=== PATIENT | female | born 1950 | race African-American/Black ===

== ENCOUNTER 2017-03-14 08:22 | Inpatient (IN) | payer OTHER, MEDICAID ==
[~2017-03-14] VITALS: Ht 167.6 cm; Wt 64.1 kg
[2017-03-14] VITALS (34 sets, daily range): BP systolic 70–126; BP diastolic 51–98
[~2017-03-14 08:22] MED LIST: ADVAIR 500-501 EACH INH; ALBUTEROL2.5 MG/3 M INH; ALLOPURINOL100 M1 ORAL; ALPHAGAN P5 M2 OP; AMLODIPINE BESYL5 MG ORAL; ASPIR 8181 MG ORAL; BENAZEPRIL HCL10 MG ORAL; COLCHICINE0.6 M1 PO; COMBIGAN EYE DRO5 ML OP; CRESTOR10 M1 ORAL; FENTANYL1 EAC3 TDERMAL; FOSAMAX70 MG ORAL; GABAPENTIN100 MG ORAL; HYDROCODON-ACE1 EA13 ORAL; KEPPRA500 MG ORAL; MIRTAZAPINE30 MG ORAL; NEXIUM40 MG ORAL; NIACIN50 MG PO; OYSTER SHELL C500 MG PO; PREDNISONE10 MG ORAL; PROTONIX40 MG ORAL; REGLAN5 MG ORAL; TENORMIN25 MG ORAL; VITAMIN B12-FO1 EAC1 IM; VITAMIN D3 1,01 EACH PO; ZANTAC150 MG ORAL
[2017-03-14 09:07] LABS: BASOPHILS % (AUTO) 0.7 % (0.0-2.0); EOSINOPHILS % (AUTO) 0.2 % (0.0-3.0); LYMPHOCYTES % (AUTO) 20.3 % (20.0-45.0); MEAN CORPUSCULAR HEMOGLOBIN 29.1 PG (27.0-31.0); MEAN CORPUSCULAR HGB CONC 30.7 G/DL (32.0-36.0); MEAN CORPUSCULAR VOLUME 95 FL (80-99); MONOCYTES % (AUTO) 2.4 % (1.0-10.0); NEUTROPHILS % (AUTO) 76.4 % (45.0-75.0); PLATELET COUNT 163 K/UL (150-450); RED BLOOD COUNT 5.15 M/UL (4.20-5.40); RED CELL DISTRIBUTION WIDTH 13.1 % (11.6-14.8); WHITE BLOOD COUNT 13.5 K/UL (4.8-10.8)
[2017-03-14 09:13] LABS: ALBUMIN/GLOBULIN RATIO 1.2 (1.0-2.7); CALCIUM 10.5 mg/dL (8.6-10.2); CREATININE 1.2 mg/dL (0.5-0.9); GLOMERULAR FILTRATION RATE 53.9 mL/min (>60); POTASSIUM 3.9 mEQ/L (3.4-4.9); TOTAL PROTEIN 6.5 g/dL (6.6-8.7); TROPONIN I < 0.30 ng/mL (<=0.30)
[2017-03-14 09:31] LABS: CKMB 1.7 ng/mL (< 3.8)
[2017-03-14 09:31] LABS: APPEARANCE,URINE CLEAR; KETONES,URINE NEGATIVE (NEGATIVE); LEUKOCYTE ESTERASE ,URINE NEGATIVE (NEGATIVE); NITRITE,URINE NEGATIVE (NEGATIVE); PH,URINE 6 (4.5-8.0); PROTEIN,URINE NEGATIVE (NEGATIVE); UROBILINOGEN,URINE 1 MG/DL (0.0-1.0)
[2017-03-14 09:42] LABS: ICTOTEST NEGATIVE
[2017-03-14] MEDS ORDERED: Cefepime HCl 2 GM in NS 110 ML IV ONE (09:45)
[2017-03-14 09:46] LABS: REFLEX LACTIC ACID YES OR NO YES
[2017-03-14] MEDS ORDERED: Metoprolol 5mg/5ml Inj IVP ONE (10:00)
--- NOTE | 2017-03-14 10:08 | Diagnostic Imaging Report ---
Indications: Shortness of breath Technique: Portable AP chest Findings: Comparison: 07/03/2016 Endotracheal and nasogastric tubes have been removed. Curvilinear gas lucency overlying the lower left side of cardiac silhouette resolved. Cardiac silhouette remains enlarged. Pulmonary vasculature obscured. Interstitial markings remain increased throughout both lungs. Linear densities persist in right lung base. Superimposed patchy airspace opacities are now suggested in the left upper lobe. Left retrocardiac region less consolidated. Left costophrenic angle remains blunted; right sharp. IMPRESSION: Development of patchy airspace opacities left upper lobe--pulmonary edema versus early pneumonia Background bilateral interstitial prominence, nonspecific, may represent chronic disease or recurrent pulmonary edema in the setting of congestive heart failure Persistent suggestion of small left pleural effusion Persistent right basal subsegmental atelectasis Improvement in left retrocardiac opacification, resolution of gas lucency over mediastinal silhouette
[2017-03-14] MEDS ORDERED: Cefepime 2gm ONE (10:16)
--- NOTE | 2017-03-14 11:28 | Emergency Room Report ---
History of Present Illness General Chief Complaint: Dyspnea/Respdistress Source: Medical Record Present Illness HPI 67-year-old female presents to ED for evaluation. Per family patient has been more altered and usual since this morning. Patient has history of frequent pneumonia. Has been hospitalized recently for treatment of pneumonia. Upon arrival patient appears more lethargic than usual but is awake answering questions. Patient has a fever. Denies chest pain or shortness of breath. No other aggravating relieving factors. No other associated symptoms Allergies: Coded Allergies: NO KNOWN ALLERGIES (Unverified Allergy, Unknown, 06/30/16) Patient History Past Medical History: HTN, CHF, seizures, other - SLE Past Surgical History: none Pertinent Family History: none Social History: Denies: smoking, alcohol use, drug use Now: No Immunizations: UTD Reviewed Nursing Documentation: PMH: Agreed, PSxH: Agreed Nursing Documentation-PMH Hx Cardiac Problems: Yes - CHF; Lupus Hx Hypertension: Yes Hx COPD: Yes - Respiratory failure; Sepsis Hx Cancer: No Hx Gastrointestinal Problems: Yes Hx Neurological Problems: Yes Hx Seizures: Yes - MYOCLONIC JERK Hx Peripheral Neuropathy: Yes Hx Numbness: Yes Hx Weakness: Yes - lower extremities Review of Systems All Other Systems: negative except mentioned in HPI Physical Exam Vital Signs Date Time Temp Pulse Resp B/P (MAP) Pulse Ox O2 Delivery O2 Flow Rate FiO2 03/14/17 08:20 97.5 72 20 99/61 100 Non-Rebreather 03/14/17 08:30 4.0 Sp02 EP Interpretation: reviewed, normal General Appearance: no apparent distress, alert, GCS 15, non-toxic, lethargic Head: normocephalic, atraumatic Eyes: bilateral eye normal inspection, bilateral eye PERRL ENT: hearing grossly normal, normal pharynx, no angioedema, normal voice Neck: full range of motion, supple/symm/no masses Respiratory: chest non-tender, normal breath sounds, crackles, speaking full sentences Cardiovascular #1: no edema, tachycardia Cardiovascular #2: 2+ carotid (R), 2+ carotid (L), 2+ radial (R), 2+ radial (L) , 2+ dorsalis pedis (R), 2+ dorsalis pedis (L) Gastrointestinal: normal bowel sounds, non tender, soft, non-distended, no guarding, no rebound Rectal: deferred Genitourinary: normal inspection, no CVA tenderness Musculoskeletal: back normal, gait/station normal, normal range of motion, non- tender Neurologic: alert, oriented x3, responsive, motor strength/tone normal, sensory intact, speech normal Psychiatric: judgement/insight normal, memory normal, mood/affect normal, no suicidal/homicidal ideation Reflexes: 3+ bicep (R), 3+ bicep (L), 3+ tricep (R), 3+ tricep (L), 3+ knee (R) , 3+ knee (L) Skin: normal color, no rash, warm/dry, well hydrated Lymphatic: no adenopathy Procedures Critical Care Time Critical Care Time i. I feel this is a highly complex case requiring extensive working including EKG/Rhythm strip, Xray/CT/US, Blood/urine lab work, repeat exams while in ED, and administration of strong opiates/narcotics for pain control, admission to hospital or close patient follow up. Total time: 30 min bedside evaluation and treatment excludes procedures (EKG). Reason for critical care: A. fib with RVR Possible complications: hypotension, hypertension, PR, shock, arrhythmias, metabolic acidosis, end organ damage, respiratory failure. Interventions: Labs, IV fluids, EKG, chest x-ray, antibiotics, Lopressor, motrin Course: Patient brought in with lethargy and fever. Labs show leukocytosis, lactic elevated. Troponins negative. EKG shows A. fib with RVR. Chest x-ray shows left upper lobe infiltrate. Given Lopressor with heart rate improved Consultations: nursing staff, EMS, family Performed by: Dr Schneider Tolerated well condition = serious j. because of unstable vital signs this patient had a condition that could potentially threaten life or limb. I feel this is a critical patient who required my full attention while patient was considered critical. Total Critical Care Time excluding procedures was greater than 35 minutes Medical Decision Making Diagnostic Impression: Primary Impression: Pneumonia Qualified Codes: J18.1 - Lobar pneumonia, unspecified organism Additional Impressions: Atrial fibrillation with rapid ventricular response Sepsis Qualified Codes: A41.9 - Sepsis, unspecified organism Seizure disorder ER Course Hospital Course 67-year-old F presents ED complaining of SOB, fever Differential diagnoses include: PR/unstable angina, contusion, muscle strain, PTX, rib fracture, pneumonia, Clinical course Patient placed on stretcher. 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 has fever. lopressor given with cardioversion. given motrin. After initial history and physical I ordered labs, EKG, chest x-ray labs reviewed- noted leukocytosis, hemoglobin/hematocrit ok, electrolytes okay, troponins negative, lactate elevated Chest x-ray- NITO infiltrate EKG -afib with RVR, no ischemic changes abx given. IVFs given. tachycardia resolved. Case discussed with Dr. Oliver and he agreed to accept the patient to his service for further care and support I. I feel this is a highly complex case requiring extensive working including EKG/Rhythm strip, Xray/CT/US, Blood/urine lab work, repeat exams while in ED, and administration of strong opiates/narcotics for pain control, admission to hospital or close patient follow up. Diagnosis - pneumonia, afib with RVR, sepsis, seizure admitted to telemetry in serious condition Labs Test 03/14/17 08:37 03/14/17 09:10 03/14/17 09:16 White Blood Count 13.5 K/UL (4.8-10.8) Red Blood Count 5.15 M/UL (4.20-5.40) Hemoglobin 15.0 G/DL (12.0-16.0) Hematocrit 48.8 % (37.0-47.0) Mean Corpuscular Volume 95 FL (80-99) Mean Corpuscular Hemoglobin 29.1 PG (27.0-31.0) Mean Corpuscular Hemoglobin Concent 30.7 G/DL (32.0-36.0) Red Cell Distribution Width 13.1 % (11.6-14.8) Platelet Count 163 K/UL (150-450) Mean Platelet Volume 9.0 FL (6.5-10.1) Neutrophils (%) (Auto) 76.4 % (45.0-75.0) Lymphocytes (%) (Auto) 20.3 % (20.0-45.0) Monocytes (%) (Auto) 2.4 % (1.0-10.0) Eosinophils (%) (Auto) 0.2 % (0.0-3.0) Basophils (%) (Auto) 0.7 % (0.0-2.0) Sodium Level 136 mEQ/L (135-145) Potassium Level 3.9 mEQ/L (3.4-4.9) Chloride Level 94 mEQ/L (98-107) Carbon Dioxide Level 28 mEQ/L (20-30) Anion Gap 14 (5-15) Blood Urea Nitrogen 28 mg/dL (7-23) Creatinine 1.2 mg/dL (0.5-0.9) Estimat Glomerular Filtration Rate 53.9 mL/min (>60) Glucose Level 148 mg/dL (74-106) Calcium Level 10.5 mg/dL (8.6-10.2) Total Bilirubin 0.4 mg/dL (0.0-1.2) Aspartate Amino Transf (AST/SGOT) 12 U/L (5-40) Alanine Aminotransferase (ALT/SGPT) 8 U/L (3-33) Alkaline Phosphatase 58 U/L (35-104) Total Creatine Kinase 29 U/L (26-140) Creatine Kinase MB 1.7 ng/mL (< 3.8) Creatine Kinase MB Relative Index 5.8 Troponin I < 0.30 ng/mL (<=0.30) Pro-B-Type Natriuretic Peptide 900 pg/mL (0-125) Total Protein 6.5 g/dL (6.6-8.7) Albumin 3.6 g/dL (3.5-5.2) Globulin 2.9 g/dL Albumin/Globulin Ratio 1.2 (1.0-2.7) Lactic Acid Level 3.70 mmol/L (0.66-2.22) Urine Color Yellow Urine Appearance Clear Urine pH 6 (4.5-8.0) Urine Specific [place] 1.020 (1.005-1.035) Urine Protein Negative (NEGATIVE) Urine Glucose (UA) Negative (NEGATIVE) Urine Ketones Negative (NEGATIVE) Urine Occult Blood Negative (NEGATIVE) Urine Nitrite Negative (NEGATIVE) Urine Bilirubin 1+ (NEGATIVE) Urine Ictotest Negative Urine Urobilinogen 1 MG/DL (0.0-1.0) Urine Leukocyte Esterase Negative (NEGATIVE) EKG Diagnostic Results Rate: tachycardiac Rhythm: other - afib with RVR ST Segments: no acute changes ASA given to the pt in ED: No Rhythm Strip Diag. Results EP Interpretation: yes Rhythm: no PVC's, no ectopy Chest X-Ray Diagnostic Results Chest X-Ray Diagnostic Results : Chest X-Ray Ordered: Yes # of Views/Limited/Complete: 1 View Indication: Shortness of Breath EP Interpretation: Yes Interpretation: no pneumothorax, other - NITO infiltrate Impression: Other - pneumonia Interpreting ER Provider: Electronically signed by Zac Schneider MD Last Vital Signs Date Time Temp Pulse Resp B/P (MAP) Pulse Ox O2 Delivery O2 Flow Rate FiO2 03/14/17 10:18 125 101/53 03/14/17 08:30 29 Nasal Cannula 4.0 03/14/17 08:30 102.0 99 Status: improved Disposition: ADMITTED INPATIENT Condition: Serious Referrals: [facility],REFERRING (PCP) ZAC SCHNEIDER M.D. Mar 14, 2017 11:28
[2017-03-14] MEDS ORDERED: Lidocaine 1% Plain 30 ml INJ ONE (13:00)
[2017-03-14] MEDS ORDERED: Levophed 4mg/4mL Inj IV ONE (13:48)
--- NOTE | 2017-03-14 14:04 | Emergency Room Report ---
History of Present Illness General Chief Complaint: Dyspnea/Respdistress Source: Medical Record Present Illness Allergies: Coded Allergies: NO KNOWN ALLERGIES (Unverified Allergy, Unknown, 06/30/16) Patient History Now: No Nursing Documentation-PMH Hx Cardiac Problems: Yes - CHF; Lupus Hx Hypertension: Yes Hx COPD: Yes - Respiratory failure; Sepsis Hx Cancer: No Hx Gastrointestinal Problems: Yes Hx Neurological Problems: Yes Hx Seizures: Yes - MYOCLONIC JERK Hx Peripheral Neuropathy: Yes Hx Numbness: Yes Hx Weakness: Yes - lower extremities Physical Exam Vital Signs Date Time Temp Pulse Resp B/P (MAP) Pulse Ox O2 Delivery O2 Flow Rate FiO2 03/14/17 08:20 97.5 72 20 99/61 100 Non-Rebreather 03/14/17 08:30 4.0 Procedures Critical Care Time Critical Care Time i. I feel this is a highly complex case requiring extensive working including EKG/Rhythm strip, Xray/CT/US, Blood/urine lab work, repeat exams while in ED, and administration of strong opiates/narcotics for pain control, admission to hospital or close patient follow up. Total time: 30 min bedside evaluation and treatment excludes procedures (EKG). Reason for critical care: Hypotensive. Septic shock Possible complications: hypotension, hypertension, [place], shock, arrhythmias, metabolic acidosis, end organ damage, respiratory failure. Interventions: Central line, levophed Course: Patient blood pressure remains low despite IV fluid boluses. Likely septic shock. Right femoral line placed. levophed started. upgradeed to ICU Consultations: nursing staff, EMS, family Performed by: Dr Schneider Tolerated well condition = critical j. because of unstable vital signs this patient had a condition that could potentially threaten life or limb. I feel this is a critical patient who required my full attention while patient was considered critical. Total Critical Care Time excluding procedures was greater than 35 minutes Central Line Central Line : Consent: Emergent Central Line Lumen: triple Maximal Sterile Barrier Tech: yes cap, yes mask, yes sterile gown, yes sterile gloves, yes large sterile sheet, yes hand hygiene, yes chlorhexidine prep Central Line Postion: femoral (R) Anesthesia: Lidocaine Complications: none Central Line Post Position: sutured, good blood return Attempts: One Patient Tolerated: Well Complications: None Medical Decision Making Diagnostic Impression: Primary Impression: Pneumonia Qualified Codes: J18.1 - Lobar pneumonia, unspecified organism Additional Impressions: Seizure disorder Sepsis Qualified Codes: A41.9 - Sepsis, unspecified organism Atrial fibrillation with rapid ventricular response ER Course Patient initially indicated to telemetry service with diagnosis of pneumonia, sepsis, A. fib Patient came hypotensive during ED course. unresponsive to IV fluids. Right femoral line placed. Pressors started. Patient will be admitted to ICU Last Vital Signs Date Time Temp Pulse Resp B/P (MAP) Pulse Ox O2 Delivery O2 Flow Rate FiO2 03/14/17 13:53 69/53 03/14/17 13:00 98.3 03/14/17 12:43 103 26 98 Nasal Cannula 4.0 Status: improved Disposition: ADMITTED INPATIENT Condition: Critical Referrals: [facility],REFERR[facility] (PCP) MELANIE SCHNEIDER M.D. Mar 14, 2017 14:04
[2017-03-14] MEDS: Hydrocortisone 100mg Inj IV SCH (19:55)
[2017-03-14] MEDS: DuoNeb 0.5-3(2.5)mg/3ml neb HHN SCH (20:46)
[2017-03-14] MEDS ORDERED: Vancomycin 1gm in D5W 275ml IVPB SCH (21:00)
[2017-03-15] VITALS (57 sets, daily range): BP systolic 78–142; BP diastolic 28–85
[2017-03-15 00:40] LABS: APPEARANCE,URINE CLEAR; KETONES,URINE NEGATIVE (NEGATIVE); LEUKOCYTE ESTERASE ,URINE NEGATIVE (NEGATIVE); NITRITE,URINE NEGATIVE (NEGATIVE); PH,URINE 5 (4.5-8.0); PROTEIN,URINE NEGATIVE (NEGATIVE); UROBILINOGEN,URINE NORMAL MG/DL (0.0-1.0)
[2017-03-15 00:45] LABS: BACTERIA,URINE FEW /HPF; RBC,URINE 0-2 /HPF (0 - 2); SQUAMOUS EPITHELIAL CELL,UR FEW /LPF (NONE/OCC); WBC,URINE 0-2 /HPF (0 - 2)
[2017-03-15] MEDS: DuoNeb 0.5-3(2.5)mg/3ml neb HHN SCH ×4 (01:01→20:23)
[2017-03-15] MEDS: Hydrocortisone 100mg Inj IV SCH ×3 (05:41→22:32)
[2017-03-15 07:39] LABS: REFLEX LACTIC ACID YES OR NO YES
[2017-03-15] MEDS ORDERED: Dyna-Hex 2% Top Sol 8oz TOPIC SCH ×2 (09:00→21:00)
[2017-03-15] MEDS ORDERED: Cefepime HCl 1 GM in D5W 55 ML IVPB SCH ×2 (09:00→11:00)
[2017-03-15] MEDS ORDERED: Tubing IV Secondary IV ONE (13:46)
[2017-03-15] MEDS ORDERED: Atenolol 25mg tab ORAL ONE (15:00)
[2017-03-15 16:14] LABS: REFLEX LACTIC ACID YES OR NO YES
--- NOTE | 2017-03-15 18:00 | Consultation ---
DATE OF CONSULTATION: 03/15/2017 PULMONARY CONSULTATION REQUESTING PHYSICIAN: Geo Oliver M.D. HISTORY OF PRESENT ILLNESS: This is a 67-year-old female with a longstanding history of lupus, pulmonary fibrosis, and chronically on steroids. She came to the hospital with shortness of breath. She was seen and worked up and subsequently admitted to the hospital for management and care. She was found to have a pneumonia. PAST MEDICAL HISTORY: Notable for questionable seizure disorder, lupus, gout, hypertension, and pulmonary fibrosis. ALLERGIES: None. LIST OF MEDICATIONS: Includes Neurontin. Presently she is also on Levophed. She is on Keppra, Protonix, vancomycin, Solu-Cortef intravenous, normal saline, breathing treatments, and vancomycin. REVIEW OF SYSTEMS: She denies any headaches, hematemesis, melena, hematochezia, night sweats, or weight loss. PHYSICAL EXAMINATION: GENERAL: Reveals elderly female. HEENT: Unremarkable. CHEST: Shows fine bibasilar crackles. ABDOMEN: Soft. There is no edema. NEUROLOGIC: Nonfocal. IMAGING STUDIES: X-ray of chest shows left upper lobe pneumonia and a small left effusion. LABORATORY TESTING: Notable white count 13,000, otherwise CBC and BMP. Lactic acid was 3.7, now is 2.5 and creatinine 1.2. Urinalysis negative. IMPRESSION: 1. Left lung pneumonia. 2. Pulmonary fibrosis. 3. Lupus. 4. Hypertension. 5. Gout. Discussion: Agree with admission and care. The patient is in septic shock and will require pressors. She is presently on Levophed which I concur with and will continue. She is also on stress dose of Solu-Cortef, which I will continue as well. Continue broad-spectrum antibiotics per Dr. Oliver, which include vancomycin. I will initiate cefepime as well. We will continue to follow as labor employment associate ordered 02:14, pulmonary hygiene. We will followup. Regan Hernandez M.D. DR: MAUREEN/DRISS JOB#: [id number] CC:
[2017-03-15] MEDS ORDERED: Vancomycin 1 GM in D5W 275 ML IVPB SCH (21:00)
[2017-03-15] MEDS ORDERED: Diltiazem 25mg/5ml IV ONE (22:45)
[2017-03-16] VITALS (19 sets, daily range): BP systolic 100–142; BP diastolic 64–93
[2017-03-16] MEDS: DuoNeb 0.5-3(2.5)mg/3ml neb HHN SCH ×3 (01:00→19:18)
[2017-03-16] MEDS ORDERED: Metoprolol Tartrate 10 MG in NS 55 ML IVPB ONE (02:45)
[2017-03-16] MEDS ORDERED: Metoprolol 5mg/5ml Inj ONE (02:51)
[2017-03-16] MEDS ORDERED: Dyna-Hex 2% Top Sol 8oz TOPIC SCH (04:00)
--- NOTE | 2017-03-16 04:16 | History and Physical Report ---
DATE OF ADMISSION: 03/14/2017 REASON FOR ADMISSION: Hypotension and pneumonia. HISTORY OF PRESENT ILLNESS: This is a 67-year-old female with systemic lupus. She has had congestion and cough for several weeks. She was not treated with antibiotics and did not have fevers, chills, or shortness of breath until the past day or two. She now has increasing sputum production, cough, and shortness of breath. In the emergency room, her presentation was notable for fever, episodes of hypoxia, and hypotension. PAST MEDICAL HISTORY: Seizure disorder, systemic lupus, history of congestive heart failure, hypertension, and paroxysmal atrial fibrillation. MEDICATIONS: Prior to admission, reviewed and reconciled and includes prednisone. ALLERGIES: None known. SOCIAL HISTORY: Negative for smoking, alcohol, or substance abuse. FAMILY HISTORY: Noncontributory. SYSTEMIC REVIEW: No noted fevers. No loss of vision or hearing. She is on steroids. No change in bowel habits. No melena or bright red blood per rectum. No history of kidney failure. She does have a seizure disorder. She does have a history of paroxysmal atrial fibrillation, which she states occurs usually when she is sick with an infection like now. She has not been on blood thinners in the past. She notes that the episodes have been very short and infrequent. PHYSICAL EXAMINATION: VITAL SIGNS: Afebrile, blood pressure 99/61, pulse 72, and respirations 20. HEENT: Temporal wasting. Oropharynx clear. No thrush. NECK: Supple. No adenopathy. There is some accessory muscle use. LUNGS: With bilateral rales. CARDIAC: Irregularly irregular rhythm. Normal S1 and S2. No murmur or rub noted. ABDOMEN: Soft and nontender. No guarding or rebound. EXTREMITIES: No edema. Perfusion of the digit is somewhat diminished. Mentation is appropriate. SKIN: Intact. DIAGNOSTIC DATA: Chest x-ray reveals bilateral infiltrates. LABORATORY DATA: Labs revealed white count 13.5 and hemoglobin 15. Lactic acid level 3.7. Troponin negative. BUN 28 and creatinine 1.2. Potassium 3.9. Natriuretic peptide 900. Albumin 3.6. IMPRESSION: 1. Pneumonia. 2. Immunocompromised state. 3. Systemic lupus. 4. Shock. 5. Sepsis. 6. Chronic diastolic congestive heart failure. 7. Hypertensive heart disease. 8. Paroxysmal atrial fibrillation. 9. Hypoxia. 10. Lactic acidosis. 11. Critical condition. 12. Guarded prognosis. PLAN: The patient will be admitted to the intensive care unit. She will be volume resuscitated and in the interim, placed on pressor support. Stress dose steroids will be given. She has already been pancultured and broad-spectrum antibiotics are going to be initiated. DVT prophylaxis is ordered. We will consider full anticoagulation if atrial fibrillation persists. We will hold atenolol until her blood pressure is more stable. Pulmonary consult will be requested. Geo Oliver M.D. DR: PARK JOB#: [id number] CC:
--- NOTE | 2017-03-16 04:16 | Progress Note ---
DATE: 03/15/2017 INTERNAL MEDICINE PROGRESS NOTE SUBJECTIVE: The patient is awake and alert. She is on tapering doses of Levophed. OBJECTIVE: VITAL SIGNS: Blood pressure 108/60, heart rate 95, and respiratory rate 20. Monitored rhythm is atrial fibrillation with episodes of sinus arrhythmia and PAC. LUNGS: Bilateral breath sounds with rales. HEART: Irregularly irregular rhythm. Normal S1 and S2. ABDOMEN: Soft. EXTREMITIES: No edema. NEUROLOGIC: Nonfocal. LABORATORY DATA: No new laboratory studies. IMPRESSION: 1. Pneumonia. 2. Immunocompromised state due to chronic steroid use. 3. Systemic lupus. 4. Shock. 5. Sepsis. 6. Lactic acidosis. PLAN: 1. Taper off pressors. 2. Continue intravenous fluids. 3. Replace electrolytes. 4. Broad-spectrum antibiotics. 5. Nasal oxygen. 6. Respiratory hygiene. 7. steroids with taper once hemodynamic condition improves. 8. Follow up laboratory studies. 9. DVT prophylaxis. 10. No plan for anticoagulation as the patient states that she did not tolerate it in the past due to bleeding problems. Geo Oliver M.D. DR: SHARRON JOB#: [id number] CC:
[2017-03-16] MEDS: Hydrocortisone 100mg Inj IV SCH ×3 (05:36→21:54)
[2017-03-16 07:09] LABS: MEAN CORPUSCULAR HEMOGLOBIN 30.2 PG (27.0-31.0); MEAN CORPUSCULAR HGB CONC 31.6 G/DL (32.0-36.0); MEAN CORPUSCULAR VOLUME 96 FL (80-99); MEAN PLATELET VOLUME 9.4 FL (6.5-10.1); PLATELET COUNT 157 K/UL (150-450); RED BLOOD COUNT 3.98 M/UL (4.20-5.40); RED CELL DISTRIBUTION WIDTH 13.2 % (11.6-14.8)
[2017-03-16 07:22] LABS: CALCIUM 6.2 mg/dL (8.6-10.2); CARBON DIOXIDE 18 mEQ/L (20-30); CHLORIDE 112 mEQ/L (98-107); CREATININE 0.6 mg/dL (0.5-0.9); GLOMERULAR FILTRATION RATE > 60 mL/min (>60); HEMOLYSIS 4; SODIUM 146 mEQ/L (135-145)
[2017-03-16] MEDS ORDERED: Norco 5mg/325mg tab ORAL PRN (07:30)
[2017-03-16 07:32] LABS: ANION GAP 16 (5-15)
[2017-03-16 07:34] LABS: POTASSIUM 2.6 mEQ/L (3.4-4.9)
[2017-03-16] MEDS ORDERED: Atenolol 25mg tab ORAL SCH ×2 (09:00)
[2017-03-16] MEDS ORDERED: Naloxone 0.4mg/ml Inj IV PRN ×2 (09:15→10:30)
[2017-03-16] MEDS ORDERED: Diltiazem 25mg/5ml IV ONE (09:30)
[2017-03-16 09:35] LABS: ALANINE AMINOTRANSFERASE 10 U/L (3-33); ALBUMIN/GLOBULIN RATIO 0.9 (1.0-2.7); ANION GAP 20 (5-15); ASPARTATE AMINO TRANSFERASE 17 U/L (5-40); CALCIUM 8.7 mg/dL (8.6-10.2); CARBON DIOXIDE 20 mEQ/L (20-30); CHLORIDE 104 mEQ/L (98-107); CREATININE 0.8 mg/dL (0.5-0.9); GLOMERULAR FILTRATION RATE > 60 mL/min (>60); HEMOLYSIS 16; POTASSIUM 3.6 mEQ/L (3.4-4.9); SODIUM 144 mEQ/L (135-145); TOTAL PROTEIN 6.7 g/dL (6.6-8.7)
[2017-03-16 09:44] LABS: BAND NEUTROPHILS % (MANUAL) 0 % (0-8); BASOPHILS % (MANUAL) 0 % (0-2); EOSINOPHILS % (MANUAL) 0 % (0-3); HYPOCHROMASIA 1+; LYMPHOCYTES % (MANUAL) 4 % (20-45); NEUTROPHILS % (MANUAL) 89 % (45-75); PLATELET ESTIMATE ADEQUATE; PLATELET MORPHOLOGY NORMAL; TOTAL CELLS COUNTED 100
[2017-03-16] MEDS ORDERED: fentaNYL Destruction MISC SCH (10:00)
[2017-03-16] MEDS ORDERED: Cefepime HCl 1 GM in D5W 55 ML IVPB SCH (11:00)
[2017-03-16] MEDS: Cefepime HCl 1 GM in D5W 55 ML IVPB SCH (11:08)
[2017-03-16] MEDS ORDERED: Tubing IV Secondary IV ONE (16:19)
[2017-03-16] MEDS ORDERED: 1/2 NS 1000ml IV ONE (16:19)
[2017-03-16] MEDS: Enoxaparin 60mg Inj SUBQ SCH (18:17)
[2017-03-16] MEDS ORDERED: KCl 10% 20 mEq/15ml liquid ORAL ONE (18:30)
[2017-03-16] MEDS ORDERED: Amiodarone 900 MG in D5W 500ml 482 ML IV SCH (19:00)
[2017-03-16] MEDS: Dyna-Hex 2% Top Sol 8oz TOPIC SCH (20:57)
[2017-03-16] MEDS ORDERED: Vancomycin 1 GM in D5W 275 ML IVPB SCH (21:00)
[2017-03-17] VITALS (48 sets, daily range): BP systolic 95–138; BP diastolic 59–97
[2017-03-17] MEDS: DuoNeb 0.5-3(2.5)mg/3ml neb HHN SCH ×4 (01:03→19:09)
--- NOTE | 2017-03-17 03:30 | Progress Note ---
DATE: 03/16/2017 SUBJECTIVE: The patient is seen on telemetry unit. At this time, she is feeling much better compared to yesterday. She reports sweating. She reports pain. She is requesting her Hamler. PHYSICAL EXAMINATION: GENERAL: Reveals an elderly female. VITAL SIGNS: Oxygen saturation 98% on 2 liters of oxygen. She is afebrile. Heart rate 94. Blood pressure 120/80. HEENT: Unremarkable. CHEST: Shows bibasilar crackles with normal heart sounds. ABDOMEN: Soft. EXTREMITIES: There is no edema. LABORATORY DATA: Lab testing pending this morning. White count is 13,000 yesterday. Blood culture is negative. IMPRESSION: 1. Pneumonia. 2. Pulmonary fibrosis. 3. Lupus. 4. Hypertension. DISCUSSION: Continue antibiotics. We will order Zofran and Hamler. Continue oxygen. Pulmonary hygiene. Followup will be scheduled for . Regan Hernandez M.D. DR: KOBI JOB#: [id number] CC:
[2017-03-17] MEDS: Hydrocortisone 100mg Inj IV SCH ×3 (05:33→20:37)
[2017-03-17 05:48] LABS: MEAN CORPUSCULAR HEMOGLOBIN 30.5 PG (27.0-31.0); MEAN CORPUSCULAR HGB CONC 32.5 G/DL (32.0-36.0); MEAN CORPUSCULAR VOLUME 94 FL (80-99); PLATELET COUNT 132 K/UL (150-450); RED BLOOD COUNT 3.98 M/UL (4.20-5.40); RED CELL DISTRIBUTION WIDTH 13.2 % (11.6-14.8); WHITE BLOOD COUNT 13.3 K/UL (4.8-10.8)
[2017-03-17] MEDS: Norco 5mg/325mg tab ORAL PRN ×2 (06:07→11:07)
[2017-03-17 06:09] LABS: ALANINE AMINOTRANSFERASE 7 U/L (3-33); ALBUMIN/GLOBULIN RATIO 0.9 (1.0-2.7); ASPARTATE AMINO TRANSFERASE 12 U/L (5-40); CALCIUM 7.5 mg/dL (8.6-10.2); CARBON DIOXIDE 28 mEQ/L (20-30); CREATININE 0.7 mg/dL (0.5-0.9); GLOMERULAR FILTRATION RATE > 60 mL/min (>60); HEMOLYSIS 4; TOTAL PROTEIN 5.9 g/dL (6.6-8.7)
[2017-03-17 06:10] LABS: ANION GAP 12 (5-15); CHLORIDE 96 mEQ/L (98-107); SODIUM 136 mEQ/L (135-145)
--- NOTE | 2017-03-17 07:00 | Progress Note ---
DATE: 03/16/2017 INTERNAL MEDICINE PROGRESS NOTE SUBJECTIVE: Condition remains tenuous. She has rapid atrial fibrillation. Continues to have episodes of shortness of breath. OBJECTIVE: VITAL SIGNS: Blood pressure 118/60, pulse 140, respiratory rate 22, and afebrile. LUNGS: Bilateral breath sounds. Scattered rhonchi. HEART: Irregularly irregular rhythm. Normal S1 and S2. ABDOMEN: Soft. EXTREMITIES: No edema. LABORATORY AND DIAGNOSTIC DATA: Labs and chest x-ray reviewed. IMPRESSION: 1. Pneumonia. 2. Immunocompromised state. 3. Paroxysmal atrial fibrillation with rapid ventricular response. 4. Systemic lupus. PLAN: 1. Stress dose steroids. 2. Intensive care unit monitoring. 3. Intravenous antiarrhythmics now with amiodarone. 4. Continue broad-spectrum antibiotics. 5. Follow up culture results. 6. Full anticoagulation for cardioembolic prophylaxis. Geo Oliver M.D. DR: GOGO JOB#: [id number] CC:
--- NOTE | 2017-03-17 07:48 | Pulmonology Progress Note ---
Assessment/Plan Assessment/Plan IMPRESSION: 1. Pneumonia. 2. Pulmonary fibrosis. 3. Lupus. 4. Hypertension. 5. A.fib + RVR DISCUSSION: Continue antibiotics. Continue Zofran and [place]. Continue oxygen. Pulmonary hygiene. Rate control.ICU care Subjective Interval Events: Transferred back to ICU due to rapid a. fib; now on cardizem and amiodarone Constitutional: Reports: no symptoms HEENT: Repors: no symptoms Respiratory: Reports: shortness of breath Cardiovascular: Reports: palpitations Gastrointestinal/Abdominal: Reports: no symptoms Genitourinary: Reports: no symptoms Allergies: Coded Allergies: NO KNOWN ALLERGIES (Unverified Allergy, Unknown, 06/30/16) Objective Last 24 Hour Vital Signs Date Time Temp Pulse Resp B/P (MAP) Pulse Ox O2 Delivery O2 Flow Rate FiO2 03/17/17 06:30 66 18 112/66 100 Nasal Cannula 2.0 03/17/17 06:00 94 13 109/61 100 Nasal Cannula 2.0 03/17/17 05:30 101 18 108/80 100 Nasal Cannula 2.0 03/17/17 05:00 103 21 118/97 98 Nasal Cannula 2.0 03/17/17 04:30 89 18 114/75 100 Nasal Cannula 2.0 03/17/17 04:00 97.9 89 19 105/69 99 Nasal Cannula 2.0 03/17/17 04:00 89 03/17/17 03:30 106 18 113/79 100 Nasal Cannula 2.0 03/17/17 03:00 102 19 100/70 100 Nasal Cannula 2.0 03/17/17 02:30 107 23 95/59 100 Nasal Cannula 2.0 03/17/17 02:00 83 23 105/76 100 Nasal Cannula 2.0 03/17/17 01:30 104 21 113/75 100 Nasal Cannula 2.0 03/17/17 01:14 111 16 100 Nasal Cannula 2.0 28 03/17/17 01:04 101 16 99 Nasal Cannula 2.0 28 03/17/17 01:00 102 19 120/78 97 Nasal Cannula 2.0 03/17/17 00:30 104 19 100/73 94 Nasal Cannula 2.0 03/17/17 00:00 105 03/17/17 00:00 98.0 104 19 103/74 94 Nasal Cannula 2.0 03/16/17 23:30 105 19 109/81 95 Nasal Cannula 2.0 03/16/17 23:29 120 103/74 03/16/17 23:00 106 19 103/74 98 Nasal Cannula 2.0 03/16/17 22:30 110 19 106/64 96 Nasal Cannula 2.0 03/16/17 22:00 112 21 103/76 95 Nasal Cannula 2.0 03/16/17 21:30 120 20 100/72 95 Nasal Cannula 2.0 03/16/17 21:00 120 21 106/66 97 Nasal Cannula 2.0 03/16/17 20:30 120 21 107/67 95 Nasal Cannula 2.0 03/16/17 20:00 128 03/16/17 20:00 97.9 128 22 105/70 95 Nasal Cannula 2.0 03/16/17 19:27 110 16 100 Nasal Cannula 2.0 28 03/16/17 19:21 Nasal Cannula 2.0 28 03/16/17 19:21 99 Nasal Cannula 2.0 28 03/16/17 19:21 105 17 99 Nasal Cannula 2.0 28 03/16/17 19:00 114 20 120/86 98 Nasal Cannula 2.0 03/16/17 18:00 127 23 122/85 99 Nasal Cannula 2.0 03/16/17 17:00 133 23 122/84 99 Nasal Cannula 2.0 03/16/17 16:00 120 03/16/17 16:00 98.5 115 21 133/84 98 Nasal Cannula 2.0 03/16/17 15:00 114 29 118/83 100 Nasal Cannula 2.0 03/16/17 14:00 117 27 127/93 99 Nasal Cannula 2.0 03/16/17 13:00 135 18 100 Nasal Cannula 2.0 28 03/16/17 13:00 Nasal Cannula 2.0 28 03/16/17 13:00 126 26 134/80 100 Nasal Cannula 2.0 03/16/17 12:09 143 123/86 03/16/17 12:00 98.3 121 28 123/86 100 Nasal Cannula 2.0 03/16/17 12:00 140 03/16/17 11:00 126 25 103/85 100 Nasal Cannula 2.0 03/16/17 10:57 97.0 03/16/17 10:42 127 03/16/17 10:20 99 Nasal Cannula 2.0 28 03/16/17 10:20 Nasal Cannula 2.0 28 03/16/17 09:47 145 141/93 03/16/17 09:47 97.0 03/16/17 08:33 102 142/93 03/16/17 08:00 97.0 102 21 142/93 100 Nasal Cannula 2.0 General Appearance: no acute distress HEENT: normocephalic Respiratory/Chest: decreased breath sounds Cardiovascular: normal peripheral pulses, tachycardia Abdomen: normal bowel sounds Microbiology Date/Time Source Procedure Growth Status 03/14/17 09:10 Blood Blood Culture - Preliminary NO GROWTH AFTER 48 HOURS Resulted 03/14/17 08:50 Blood Blood Culture - Preliminary NO GROWTH AFTER 48 HOURS Resulted 03/14/17 09:20 Nasal Nares MRSA Culture - Final NO METHICILLIN RESISTANT STAPH AUREUS... Complete 03/14/17 09:20 Rectum VRE Culture - Final NO VANCOMYCIN RESISTANT ENTEROCOCCUS ... Complete Laboratory Tests 03/16/17 08:30: Sodium Level 144, Potassium Level 3.6, Chloride Level 104, Carbon Dioxide Level 20, Anion Gap 20H, Blood Urea Nitrogen 13, Creatinine 0.8, Estimat Glomerular Filtration Rate > 60, Glucose Level 121H, Calcium Level 8.7#, Total Bilirubin 0.2, Aspartate Amino Transf (AST/SGOT) 17, Alanine Aminotransferase (ALT/SGPT) 10, Alkaline Phosphatase 77, Total Protein 6.7, Albumin 3.2L, Globulin 3.5, Albumin/Globulin Ratio 0.9L 03/17/17 03:40: Sodium Level 136, Potassium Level 3.0L, Chloride Level 96L, Carbon Dioxide Level 28, Anion Gap 12, Blood Urea Nitrogen 14, Creatinine 0.7, Estimat Glomerular Filtration Rate > 60, Glucose Level 103, Calcium Level 7.5L, Total Bilirubin 0.3, Aspartate Amino Transf (AST/SGOT) 12, Alanine Aminotransferase ( ALT/SGPT) 7, Alkaline Phosphatase 95, Total Protein 5.9L, Albumin 2.8L, Globulin 3.1, Albumin/Globulin Ratio 0.9L, White Blood Count 13.3H, Red Blood Count 3.98L, Hemoglobin 12.1, Hematocrit 37.3, Mean Corpuscular Volume 94, Mean Corpuscular Hemoglobin 30.5, Mean Corpuscular Hemoglobin Concent 32.5, Red Cell Distribution Width 13.2, Platelet Count 132L, Mean Platelet Volume 9.0, Neutrophils (%) (Auto) , Lymphocytes (%) (Auto) , Monocytes (%) (Auto) , Eosinophils (%) (Auto) , Basophils (%) (Auto) , Magnesium Level 2.0, Pro-B-Type Natriuretic Peptide 7044H Current Medications Medications (Trade) Dose Ordered Sig/Harvey Route PRN Reason Start Time Stop Time Status Last Admin Dose Admin Acetaminophen/ Hydrocodone Bitart ([place] 5/325) 1 tab Q4H PRN ORAL Moderate Pain (Pain Scale 4-6) 03/16/17 12:30 03/23/17 12:29 03/17/17 06:07 Albuterol/ Ipratropium (DuoNeb 0.5-3(2.5)mg/3ml) 3 ml Q6HRT HHN 03/16/17 13:00 03/19/17 19:29 03/17/17 01:03 Amiodarone HCl 900 mg/Dextrose 500 ml @ 0 mls/hr Q24H IV 03/16/17 19:00 03/17/17 18:59 03/16/17 18:35 Atenolol (Tenormin) 25 mg DAILY ORAL 03/17/17 09:00 04/15/17 08:59 Cefepime HCl 1 gm/ Dextrose 55 ml @ 110 mls/hr Q24H IVPB 03/16/17 11:00 03/22/17 10:59 03/16/17 11:08 Chlorhexidine Gluconate (Anny-Hex 2%) 1 applic QHS TOPIC 03/16/17 21:00 04/14/17 20:59 03/16/17 20:57 Diltiazem HCl 125 mg/Dextrose 125 ml @ 0 mls/hr Q24H IV 03/16/17 12:00 03/17/17 11:59 03/16/17 23:29 Enoxaparin Sodium (Lovenox) 60 mg EVERY 12 HOURS SUBQ 03/16/17 18:00 04/15/17 17:59 03/16/17 18:17 Fentanyl (Duragesic) 1 patch Q72H TDERMAL 03/16/17 10:30 03/23/17 10:29 03/16/17 10:27 Gabapentin (Neurontin) 300 mg THREE TIMES A DAY ORAL 03/16/17 13:00 04/14/17 08:59 03/16/17 17:55 Hydrocortisone (Solu-CORTEF) 100 mg EVERY 8 HOURS IV 03/16/17 14:00 04/13/17 19:44 03/17/17 05:33 Levetiracetam (Keppra) 500 mg Q12HR ORAL 03/16/17 21:00 04/13/17 20:59 03/16/17 20:56 Miscellaneous Medication (fentaNYL Destruction) 1 ea Q72H MISC 03/19/17 10:30 04/18/17 10:29 Naloxone HCl (Narcan) 0.1 mg PRN IV Sedation scale 3 or 4 03/16/17 10:30 04/15/17 10:29 Ondansetron HCl (Zofran) 4 mg Q6H PRN IVP Nausea & Vomiting 03/16/17 13:30 04/15/17 07:29 Pantoprazole (Protonix) 40 mg EVERY 12 HOURS ORAL 03/16/17 21:00 04/13/17 20:59 03/16/17 20:56 Vancomycin HCl (Vanco rx to dose) 1 ea DAILYPRN PRN MISC Per rx protocol 03/16/17 10:45 04/13/17 10:44 Vancomycin HCl 1 gm/Dextrose 275 ml @ 183.708 mls/hr Q24H IVPB 03/16/17 21:00 03/18/17 20:59 03/16/17 20:55 Regan Hernandez MD Mar 17, 2017 07:48
[2017-03-17] MEDS: Atenolol 25mg tab ORAL SCH (08:32)
[2017-03-17] MEDS: Enoxaparin 60mg Inj SUBQ SCH ×2 (08:34→20:39)
--- NOTE | 2017-03-17 10:54 | Diagnostic Imaging Report ---
Indication: Dyspnea Comparison: 03/14/17 A single view chest radiograph was obtained. Findings: Interstitial opacities have significantly improved since the last study. Heart is enlarged. Pulmonary vascularity remains mildly prominent. Impression: Significant interval improvement in interstitial opacities probably edema.
[2017-03-17] MEDS ORDERED: KCl 10% 40mEq/30ml liquid ORAL ONE (11:00)
[2017-03-17] MEDS: Cefepime HCl 1 GM in D5W 55 ML IVPB SCH ×2 (11:07→22:43)
[2017-03-17] MEDS ORDERED: KCl 10% 40mEq/30ml liquid NG ONE ×2 (14:30→22:00)
--- NOTE | 2017-03-17 14:52 | Infectious Diseases Prog Note ---
Assessment/Plan Assessment/Plan Full consult dictated: A) Subjective Allergies: Coded Allergies: NO KNOWN ALLERGIES (Unverified Allergy, Unknown, 06/30/16) Objective Vital Signs Last 24 Hour Vital Signs Date Time Temp Pulse Resp B/P (MAP) Pulse Ox O2 Delivery O2 Flow Rate FiO2 03/17/17 14:00 78 16 115/71 100 Nasal Cannula 2.0 03/17/17 13:30 82 18 118/76 100 Nasal Cannula 2.0 03/17/17 13:00 75 18 124/76 100 Nasal Cannula 2.0 03/17/17 12:30 78 18 112/76 100 Nasal Cannula 2.0 03/17/17 12:05 98 104/71 03/17/17 12:05 98.1 03/17/17 12:00 98 03/17/17 12:00 98 17 104/71 100 Nasal Cannula 2.0 03/17/17 11:30 92 17 116/75 100 Nasal Cannula 2.0 03/17/17 11:00 89 18 118/78 100 Nasal Cannula 2.0 03/17/17 10:30 99 18 110/74 100 Nasal Cannula 2.0 03/17/17 10:00 98 18 113/74 100 Nasal Cannula 2.0 03/17/17 09:30 110 16 115/80 100 Nasal Cannula 2.0 03/17/17 09:00 112 16 115/72 97 Nasal Cannula 2.0 03/17/17 08:32 112 115/71 03/17/17 08:30 82 18 109/71 100 Nasal Cannula 2.0 03/17/17 08:00 87 03/17/17 08:00 102 16 115/71 100 Nasal Cannula 2.0 03/17/17 07:35 107 18 100 Nasal Cannula 2.0 28 03/17/17 07:30 92 16 104/75 100 Nasal Cannula 2.0 03/17/17 07:30 99 Nasal Cannula 2.0 28 03/17/17 07:30 Nasal Cannula 2.0 28 03/17/17 07:30 104 18 99 Nasal Cannula 2.0 28 03/17/17 07:00 98.1 68 18 105/70 100 Nasal Cannula 2.0 03/17/17 06:30 66 18 112/66 100 Nasal Cannula 2.0 03/17/17 06:00 94 13 109/61 100 Nasal Cannula 2.0 03/17/17 05:30 101 18 108/80 100 Nasal Cannula 2.0 03/17/17 05:00 103 21 118/97 98 Nasal Cannula 2.0 03/17/17 04:30 89 18 114/75 100 Nasal Cannula 2.0 03/17/17 04:00 97.9 89 19 105/69 99 Nasal Cannula 2.0 03/17/17 04:00 89 03/17/17 03:30 106 18 113/79 100 Nasal Cannula 2.0 03/17/17 03:00 102 19 100/70 100 Nasal Cannula 2.0 03/17/17 02:30 107 23 95/59 100 Nasal Cannula 2.0 03/17/17 02:00 83 23 105/76 100 Nasal Cannula 2.0 03/17/17 01:30 104 21 113/75 100 Nasal Cannula 2.0 03/17/17 01:14 111 16 100 Nasal Cannula 2.0 28 03/17/17 01:04 101 16 99 Nasal Cannula 2.0 28 03/17/17 01:00 102 19 120/78 97 Nasal Cannula 2.0 03/17/17 00:30 104 19 100/73 94 Nasal Cannula 2.0 03/17/17 00:00 105 03/17/17 00:00 98.0 104 19 103/74 94 Nasal Cannula 2.0 03/16/17 23:30 105 19 109/81 95 Nasal Cannula 2.0 03/16/17 23:29 120 103/74 03/16/17 23:00 106 19 103/74 98 Nasal Cannula 2.0 03/16/17 22:30 110 19 106/64 96 Nasal Cannula 2.0 03/16/17 22:00 112 21 103/76 95 Nasal Cannula 2.0 03/16/17 21:30 120 20 100/72 95 Nasal Cannula 2.0 03/16/17 21:00 120 21 106/66 97 Nasal Cannula 2.0 03/16/17 20:30 120 21 107/67 95 Nasal Cannula 2.0 03/16/17 20:00 128 03/16/17 20:00 97.9 128 22 105/70 95 Nasal Cannula 2.0 03/16/17 19:27 110 16 100 Nasal Cannula 2.0 28 03/16/17 19:21 Nasal Cannula 2.0 28 03/16/17 19:21 99 Nasal Cannula 2.0 28 03/16/17 19:21 105 17 99 Nasal Cannula 2.0 28 03/16/17 19:00 114 20 120/86 98 Nasal Cannula 2.0 03/16/17 18:00 127 23 122/85 99 Nasal Cannula 2.0 03/16/17 17:00 133 23 122/84 99 Nasal Cannula 2.0 03/16/17 16:00 120 03/16/17 16:00 98.5 115 21 133/84 98 Nasal Cannula 2.0 03/16/17 15:00 114 29 118/83 100 Nasal Cannula 2.0 Height (Feet): 5 Height (Inches): 6.00 Weight (Pounds): 141 Laboratory Tests Test 03/17/17 03:40 White Blood Count 13.3 K/UL (4.8-10.8) H Red Blood Count 3.98 M/UL (4.20-5.40) L Hemoglobin 12.1 G/DL (12.0-16.0) Hematocrit 37.3 % (37.0-47.0) Mean Corpuscular Volume 94 FL (80-99) Mean Corpuscular Hemoglobin 30.5 PG (27.0-31.0) Mean Corpuscular Hemoglobin Concent 32.5 G/DL (32.0-36.0) Red Cell Distribution Width 13.2 % (11.6-14.8) Platelet Count 132 K/UL (150-450) L Mean Platelet Volume 9.0 FL (6.5-10.1) Neutrophils (%) (Auto) % (45.0-75.0) Lymphocytes (%) (Auto) % (20.0-45.0) Monocytes (%) (Auto) % (1.0-10.0) Eosinophils (%) (Auto) % (0.0-3.0) Basophils (%) (Auto) % (0.0-2.0) Sodium Level 136 mEQ/L (135-145) Potassium Level 3.0 mEQ/L (3.4-4.9) L Chloride Level 96 mEQ/L (98-107) L Carbon Dioxide Level 28 mEQ/L (20-30) Anion Gap 12 (5-15) Blood Urea Nitrogen 14 mg/dL (7-23) Creatinine 0.7 mg/dL (0.5-0.9) Estimat Glomerular Filtration Rate > 60 mL/min (>60) Glucose Level 103 mg/dL (74-106) Calcium Level 7.5 mg/dL (8.6-10.2) L Magnesium Level 2.0 mg/dL (1.7-2.5) Total Bilirubin 0.3 mg/dL (0.0-1.2) Aspartate Amino Transf (AST/SGOT) 12 U/L (5-40) Alanine Aminotransferase (ALT/SGPT) 7 U/L (3-33) Alkaline Phosphatase 95 U/L (35-104) Pro-B-Type Natriuretic Peptide 7044 pg/mL (0-125) H Total Protein 5.9 g/dL (6.6-8.7) L Albumin 2.8 g/dL (3.5-5.2) L Globulin 3.1 g/dL Albumin/Globulin Ratio 0.9 (1.0-2.7) L Current Medications Medications (Trade) Dose Ordered Sig/Harvey Route PRN Reason Start Time Stop Time Status Last Admin Dose Admin Acetaminophen/ Hydrocodone Bitart ([place] 5/325) 1 tab Q4H PRN ORAL Moderate Pain (Pain Scale 4-6) 03/16/17 12:30 03/23/17 12:29 03/17/17 11:07 Albuterol/ Ipratropium (DuoNeb 0.5-3(2.5)mg/3ml) 3 ml Q6HRT HHN 03/16/17 13:00 03/19/17 19:29 03/17/17 14:18 Amiodarone HCl 900 mg/Dextrose 500 ml @ 0 mls/hr Q24H IV 03/16/17 19:00 03/17/17 18:59 03/16/17 18:35 Atenolol (Tenormin) 25 mg DAILY ORAL 03/17/17 09:00 04/15/17 08:59 03/17/17 08:32 Cefepime HCl 1 gm/ Dextrose 55 ml @ 110 mls/hr Q24H IVPB 03/16/17 11:00 03/22/17 10:59 03/17/17 11:07 Chlorhexidine Gluconate (Anny-Hex 2%) 1 applic QHS TOPIC 03/16/17 21:00 04/14/17 20:59 03/16/17 20:57 Diltiazem HCl 125 mg/Dextrose 125 ml @ 0 mls/hr Q24H IV 03/17/17 12:00 03/18/17 11:59 03/17/17 12:05 Enoxaparin Sodium (Lovenox) 60 mg EVERY 12 HOURS SUBQ 03/16/17 18:00 04/15/17 17:59 03/17/17 08:34 Fentanyl (Duragesic) 1 patch Q72H TDERMAL 03/16/17 10:30 03/23/17 10:29 03/16/17 10:27 Gabapentin (Neurontin) 300 mg THREE TIMES A DAY ORAL 03/16/17 13:00 04/14/17 08:59 03/17/17 12:32 Hydrocortisone (Solu-CORTEF) 100 mg EVERY 8 HOURS IV 03/16/17 14:00 04/13/17 19:44 03/17/17 14:09 Levetiracetam (Keppra) 500 mg Q12HR ORAL 03/16/17 21:00 04/13/17 20:59 03/17/17 08:32 Miscellaneous Medication (fentaNYL Destruction) 1 ea Q72H MISC 03/19/17 10:30 04/18/17 10:29 Naloxone HCl (Narcan) 0.1 mg PRN IV Sedation scale 3 or 4 03/16/17 10:30 04/15/17 10:29 Ondansetron HCl (Zofran) 4 mg Q6H PRN IVP Nausea & Vomiting 03/16/17 13:30 04/15/17 07:29 Pantoprazole (Protonix) 40 mg EVERY 12 HOURS ORAL 03/16/17 21:00 04/13/17 20:59 03/17/17 08:31 Potassium Chloride (KCl 10% 40mEq Oral solution) 40 meq DAILY NG 03/18/17 09:00 04/17/17 08:59 Vancomycin HCl (Vanco rx to dose) 1 ea DAILYPRN PRN MISC Per rx protocol 03/16/17 10:45 04/13/17 10:44 Vancomycin HCl 1 gm/Dextrose 275 ml @ 183.708 mls/hr Q24H IVPB 03/16/17 21:00 03/18/17 20:59 03/16/17 20:55 DIMITRI RIVERA Mar 17, 2017 14:52
--- NOTE | 2017-03-17 15:02 | Infectious Diseases Prog Note ---
Assessment/Plan Assessment/Plan Full consult dictated: A) 1) sepsis, pna, leukocytosis and fevers, ua negative 2) lupus 3) anemia, pulmonary fibrosis, htn, af with rvr, sz, chf, gout, pulmonary edema 4) allergies - nkda 5) fh - nc, sh-negative, mar noted, notes and records reviewed 6) d/w RN P) 1) vancomycin, cefepime 2) check sc, labs and chest x-ray 3) continue treatment per primary and consultants 4) orders noted and entered 5) d/w pharmacy 6) thanks Subjective Allergies: Coded Allergies: NO KNOWN ALLERGIES (Unverified Allergy, Unknown, 06/30/16) Objective Vital Signs Last 24 Hour Vital Signs Date Time Temp Pulse Resp B/P (MAP) Pulse Ox O2 Delivery O2 Flow Rate FiO2 03/17/17 14:00 78 16 115/71 100 Nasal Cannula 2.0 03/17/17 13:30 82 18 118/76 100 Nasal Cannula 2.0 03/17/17 13:00 75 18 124/76 100 Nasal Cannula 2.0 03/17/17 12:30 78 18 112/76 100 Nasal Cannula 2.0 03/17/17 12:05 98 104/71 03/17/17 12:05 98.1 03/17/17 12:00 98 03/17/17 12:00 98 17 104/71 100 Nasal Cannula 2.0 03/17/17 11:30 92 17 116/75 100 Nasal Cannula 2.0 03/17/17 11:00 89 18 118/78 100 Nasal Cannula 2.0 03/17/17 10:30 99 18 110/74 100 Nasal Cannula 2.0 03/17/17 10:00 98 18 113/74 100 Nasal Cannula 2.0 03/17/17 09:30 110 16 115/80 100 Nasal Cannula 2.0 03/17/17 09:00 112 16 115/72 97 Nasal Cannula 2.0 03/17/17 08:32 112 115/71 03/17/17 08:30 82 18 109/71 100 Nasal Cannula 2.0 03/17/17 08:00 87 03/17/17 08:00 102 16 115/71 100 Nasal Cannula 2.0 03/17/17 07:35 107 18 100 Nasal Cannula 2.0 28 03/17/17 07:30 92 16 104/75 100 Nasal Cannula 2.0 03/17/17 07:30 99 Nasal Cannula 2.0 28 03/17/17 07:30 Nasal Cannula 2.0 28 03/17/17 07:30 104 18 99 Nasal Cannula 2.0 28 03/17/17 07:00 98.1 68 18 105/70 100 Nasal Cannula 2.0 03/17/17 06:30 66 18 112/66 100 Nasal Cannula 2.0 03/17/17 06:00 94 13 109/61 100 Nasal Cannula 2.0 03/17/17 05:30 101 18 108/80 100 Nasal Cannula 2.0 03/17/17 05:00 103 21 118/97 98 Nasal Cannula 2.0 03/17/17 04:30 89 18 114/75 100 Nasal Cannula 2.0 03/17/17 04:00 97.9 89 19 105/69 99 Nasal Cannula 2.0 03/17/17 04:00 89 03/17/17 03:30 106 18 113/79 100 Nasal Cannula 2.0 03/17/17 03:00 102 19 100/70 100 Nasal Cannula 2.0 03/17/17 02:30 107 23 95/59 100 Nasal Cannula 2.0 03/17/17 02:00 83 23 105/76 100 Nasal Cannula 2.0 03/17/17 01:30 104 21 113/75 100 Nasal Cannula 2.0 03/17/17 01:14 111 16 100 Nasal Cannula 2.0 28 03/17/17 01:04 101 16 99 Nasal Cannula 2.0 28 03/17/17 01:00 102 19 120/78 97 Nasal Cannula 2.0 03/17/17 00:30 104 19 100/73 94 Nasal Cannula 2.0 03/17/17 00:00 105 03/17/17 00:00 98.0 104 19 103/74 94 Nasal Cannula 2.0 03/16/17 23:30 105 19 109/81 95 Nasal Cannula 2.0 03/16/17 23:29 120 103/74 03/16/17 23:00 106 19 103/74 98 Nasal Cannula 2.0 03/16/17 22:30 110 19 106/64 96 Nasal Cannula 2.0 03/16/17 22:00 112 21 103/76 95 Nasal Cannula 2.0 03/16/17 21:30 120 20 100/72 95 Nasal Cannula 2.0 03/16/17 21:00 120 21 106/66 97 Nasal Cannula 2.0 03/16/17 20:30 120 21 107/67 95 Nasal Cannula 2.0 03/16/17 20:00 128 03/16/17 20:00 97.9 128 22 105/70 95 Nasal Cannula 2.0 03/16/17 19:27 110 16 100 Nasal Cannula 2.0 28 03/16/17 19:21 Nasal Cannula 2.0 28 03/16/17 19:21 99 Nasal Cannula 2.0 28 03/16/17 19:21 105 17 99 Nasal Cannula 2.0 28 03/16/17 19:00 114 20 120/86 98 Nasal Cannula 2.0 03/16/17 18:00 127 23 122/85 99 Nasal Cannula 2.0 03/16/17 17:00 133 23 122/84 99 Nasal Cannula 2.0 03/16/17 16:00 120 03/16/17 16:00 98.5 115 21 133/84 98 Nasal Cannula 2.0 03/16/17 15:00 114 29 118/83 100 Nasal Cannula 2.0 Height (Feet): 5 Height (Inches): 6.00 Weight (Pounds): 141 Laboratory Tests Test 03/17/17 03:40 White Blood Count 13.3 K/UL (4.8-10.8) H Red Blood Count 3.98 M/UL (4.20-5.40) L Hemoglobin 12.1 G/DL (12.0-16.0) Hematocrit 37.3 % (37.0-47.0) Mean Corpuscular Volume 94 FL (80-99) Mean Corpuscular Hemoglobin 30.5 PG (27.0-31.0) Mean Corpuscular Hemoglobin Concent 32.5 G/DL (32.0-36.0) Red Cell Distribution Width 13.2 % (11.6-14.8) Platelet Count 132 K/UL (150-450) L Mean Platelet Volume 9.0 FL (6.5-10.1) Neutrophils (%) (Auto) % (45.0-75.0) Lymphocytes (%) (Auto) % (20.0-45.0) Monocytes (%) (Auto) % (1.0-10.0) Eosinophils (%) (Auto) % (0.0-3.0) Basophils (%) (Auto) % (0.0-2.0) Sodium Level 136 mEQ/L (135-145) Potassium Level 3.0 mEQ/L (3.4-4.9) L Chloride Level 96 mEQ/L (98-107) L Carbon Dioxide Level 28 mEQ/L (20-30) Anion Gap 12 (5-15) Blood Urea Nitrogen 14 mg/dL (7-23) Creatinine 0.7 mg/dL (0.5-0.9) Estimat Glomerular Filtration Rate > 60 mL/min (>60) Glucose Level 103 mg/dL (74-106) Calcium Level 7.5 mg/dL (8.6-10.2) L Magnesium Level 2.0 mg/dL (1.7-2.5) Total Bilirubin 0.3 mg/dL (0.0-1.2) Aspartate Amino Transf (AST/SGOT) 12 U/L (5-40) Alanine Aminotransferase (ALT/SGPT) 7 U/L (3-33) Alkaline Phosphatase 95 U/L (35-104) Pro-B-Type Natriuretic Peptide 7044 pg/mL (0-125) H Total Protein 5.9 g/dL (6.6-8.7) L Albumin 2.8 g/dL (3.5-5.2) L Globulin 3.1 g/dL Albumin/Globulin Ratio 0.9 (1.0-2.7) L Current Medications Medications (Trade) Dose Ordered Sig/Harvey Route PRN Reason Start Time Stop Time Status Last Admin Dose Admin Acetaminophen/ Hydrocodone Bitart ([place] 5/325) 1 tab Q4H PRN ORAL Moderate Pain (Pain Scale 4-6) 03/16/17 12:30 03/23/17 12:29 03/17/17 11:07 Albuterol/ Ipratropium (DuoNeb 0.5-3(2.5)mg/3ml) 3 ml Q6HRT HHN 03/16/17 13:00 03/19/17 19:29 03/17/17 14:18 Amiodarone HCl 900 mg/Dextrose 500 ml @ 0 mls/hr Q24H IV 03/16/17 19:00 03/17/17 18:59 03/16/17 18:35 Atenolol (Tenormin) 25 mg DAILY ORAL 03/17/17 09:00 04/15/17 08:59 03/17/17 08:32 Cefepime HCl 1 gm/ Dextrose 55 ml @ 110 mls/hr Q12HR@1100,2300 IVPB 03/17/17 23:00 03/24/17 22:59 Chlorhexidine Gluconate (Anny-Hex 2%) 1 applic QHS TOPIC 03/16/17 21:00 04/14/17 20:59 03/16/17 20:57 Diltiazem HCl 125 mg/Dextrose 125 ml @ 0 mls/hr Q24H IV 03/17/17 12:00 03/18/17 11:59 03/17/17 12:05 Enoxaparin Sodium (Lovenox) 60 mg EVERY 12 HOURS SUBQ 03/16/17 18:00 04/15/17 17:59 03/17/17 08:34 Fentanyl (Duragesic) 1 patch Q72H TDERMAL 03/16/17 10:30 03/23/17 10:29 03/16/17 10:27 Gabapentin (Neurontin) 300 mg THREE TIMES A DAY ORAL 03/16/17 13:00 04/14/17 08:59 03/17/17 12:32 Hydrocortisone (Solu-CORTEF) 100 mg EVERY 8 HOURS IV 03/16/17 14:00 04/13/17 19:44 03/17/17 14:09 Levetiracetam (Keppra) 500 mg Q12HR ORAL 03/16/17 21:00 04/13/17 20:59 03/17/17 08:32 Miscellaneous Medication (fentaNYL Destruction) 1 ea Q72H MISC 03/19/17 10:30 04/18/17 10:29 Naloxone HCl (Narcan) 0.1 mg PRN IV Sedation scale 3 or 4 03/16/17 10:30 04/15/17 10:29 Ondansetron HCl (Zofran) 4 mg Q6H PRN IVP Nausea & Vomiting 03/16/17 13:30 04/15/17 07:29 Pantoprazole (Protonix) 40 mg EVERY 12 HOURS ORAL 03/16/17 21:00 04/13/17 20:59 03/17/17 08:31 Potassium Chloride (KCl 10% 40mEq Oral solution) 40 meq DAILY NG 03/18/17 09:00 04/17/17 08:59 Vancomycin HCl (Vanco rx to dose) 1 ea DAILYPRN PRN MISC Per rx protocol 03/16/17 10:45 04/13/17 10:44 Vancomycin HCl 1 gm/Dextrose 275 ml @ 183.708 mls/hr Q24H IVPB 03/16/17 21:00 03/18/17 20:59 03/16/17 20:55 DIMITRI RIVERA Mar 17, 2017 15:02
[2017-03-17] MEDS ORDERED: NS 275ml ONE (15:28)
[2017-03-17] MEDS: Amiodarone 200mg tab ORAL SCH ×2 (17:21→20:37)
[2017-03-17] MEDS: Norco 10mg/325mg tab ORAL PRN ×2 (17:22→21:47)
[2017-03-17 20:02] LABS: APPEARANCE,URINE CLEAR; KETONES,URINE NEGATIVE (NEGATIVE); LEUKOCYTE ESTERASE ,URINE 1+ (NEGATIVE); NITRITE,URINE NEGATIVE (NEGATIVE); PH,URINE 5 (4.5-8.0); PROTEIN,URINE NEGATIVE (NEGATIVE); UROBILINOGEN,URINE NORMAL MG/DL (0.0-1.0)
[2017-03-17 20:14] LABS: SQUAMOUS EPITHELIAL CELL,UR OCCASIONAL /LPF (NONE/OCC)
[2017-03-17 20:15] LABS: BACTERIA,URINE OCCASIONAL /HPF
[2017-03-17] MEDS: Dyna-Hex 2% Top Sol 8oz TOPIC SCH (20:37)
[2017-03-17] MEDS: Vancomycin 1 GM in D5W 275 ML IVPB SCH (20:38)
[2017-03-17] MEDS ORDERED: Amiodarone 900 MG in D5W 500ml 482 ML IV SCH (21:30)
[2017-03-17] MEDS: metroNIDAZOLE 500mg 100 ML IVPB SCH (21:45)
[2017-03-18] VITALS (47 sets, daily range): BP systolic 102–155; BP diastolic 55–106
[2017-03-18] MEDS: DuoNeb 0.5-3(2.5)mg/3ml neb HHN SCH ×4 (00:54→20:34)
[2017-03-18] MEDS: Norco 10mg/325mg tab ORAL PRN ×4 (03:34→20:14)
[2017-03-18 05:09] LABS: MEAN CORPUSCULAR HEMOGLOBIN 30.1 PG (27.0-31.0); MEAN CORPUSCULAR HGB CONC 31.8 G/DL (32.0-36.0); MEAN CORPUSCULAR VOLUME 95 FL (80-99); MEAN PLATELET VOLUME 8.1 FL (6.5-10.1); PLATELET COUNT 112 K/UL (150-450); RED BLOOD COUNT 3.74 M/UL (4.20-5.40); RED CELL DISTRIBUTION WIDTH 12.8 % (11.6-14.8); WHITE BLOOD COUNT 11.2 K/UL (4.8-10.8)
[2017-03-18 05:38] LABS: ANION GAP 15 (5-15); CALCIUM 7.8 mg/dL (8.6-10.2); CARBON DIOXIDE 29 mEQ/L (20-30); CHLORIDE 98 mEQ/L (98-107); CREATININE 0.8 mg/dL (0.5-0.9); GLOMERULAR FILTRATION RATE > 60 mL/min (>60); HEMOLYSIS 2; SODIUM 142 mEQ/L (135-145)
[2017-03-18] MEDS: metroNIDAZOLE 500mg 100 ML IVPB SCH ×3 (05:40→21:40)
[2017-03-18 06:15] LABS: REFLEX LACTIC ACID YES OR NO YES
[2017-03-18 08:39] LABS: BAND NEUTROPHILS % (MANUAL) 0 % (0-8); BASOPHILS % (MANUAL) 0 % (0-2); EOSINOPHILS % (MANUAL) 0 % (0-3); LYMPHOCYTES % (MANUAL) 8 % (20-45); NEUTROPHILS % (MANUAL) 92 % (45-75); NUCLEATED RED BLOOD CELLS 1 /100 WBC; PLATELET ESTIMATE DECREASED; PLATELET MORPHOLOGY NORMAL; TOTAL CELLS COUNTED 100
--- NOTE | 2017-03-18 09:15 | Progress Note ---
DATE: 03/17/2017 INTERNAL MEDICINE PROGRESS NOTE SUBJECTIVE: The patient has less shortness of breath. Maintaining sinus rhythm. Remains on IV amiodarone and tapering doses of intravenous Cardizem. Her arthritic pain is a worsening concern. OBJECTIVE: VITAL SIGNS: Blood pressure 117/75, pulse 87, and respirations 16. LUNGS: With few rales. CARDIAC: Regular. Normal S1 and S2. ABDOMEN: Soft. EXTREMITIES: No edema. LABORATORY AND DIAGNOSTIC DATA: Chest x-ray revealed significant improvement in alveolar infiltrate. White count 13 and hemoglobin 12. Potassium 3.0. Pro-natriuretic peptide 7000. IMPRESSION: 1. Pneumonia. 2. Adrenocortical suppression. 3. Systemic lupus. 4. Paroxysmal atrial fibrillation with rapid ventricular response. 5. Lupus with associated joint pain. 6. Hypokalemia. 7. Acute diastolic congestive heart failure. PLAN: 1. Discontinue Cardizem. 2. Continue amiodarone. 3. Continue anticoagulation for now. 4. Replace potassium. 5. Cautious diuresis. 6. Antimicrobials per Infectious Diseases international travel consultant. Geo Oliver M.D. DR: PARK JOB#: [id number] CC:
--- NOTE | 2017-03-18 09:24 | Pulmonology Progress Note ---
Assessment/Plan Assessment/Plan IMPRESSION: 1. Pneumonia. 2. Pulmonary fibrosis. 3. Lupus. 4. Hypertension. 5. A.fib + RVR DISCUSSION: Continue antibiotics. Continue Zofran and [place]. Continue oxygen. Pulmonary hygiene. Rate control. ICU care Subjective Interval Events: Better; still in ICU; on amiodarone Constitutional: Reports: no symptoms HEENT: Repors: no symptoms Respiratory: Reports: shortness of breath Cardiovascular: Reports: palpitations Gastrointestinal/Abdominal: Reports: no symptoms Genitourinary: Reports: no symptoms Neurologic: Reports: no symptoms Allergies: Coded Allergies: NO KNOWN ALLERGIES (Unverified Allergy, Unknown, 06/30/16) Objective Last 24 Hour Vital Signs Date Time Temp Pulse Resp B/P (MAP) Pulse Ox O2 Delivery O2 Flow Rate FiO2 03/18/17 07:59 72 03/18/17 07:07 74 20 100 Room Air 03/18/17 07:03 Room Air 03/18/17 07:00 72 15 125/72 97 Room Air 03/18/17 06:56 71 16 99 Room Air 03/18/17 06:55 99 Nasal Cannula 21.0 21 03/18/17 06:50 66 14 114/71 97 Room Air 03/18/17 06:45 75 14 118/62 96 Room Air 03/18/17 06:40 71 14 126/94 96 Room Air 03/18/17 06:35 67 15 96 Room Air 03/18/17 06:30 68 13 111/68 96 Room Air 03/18/17 06:00 72 15 106/71 97 Room Air 03/18/17 05:30 77 14 115/70 98 Room Air 03/18/17 05:00 70 14 122/69 98 Room Air 03/18/17 04:30 71 15 116/70 98 Room Air 03/18/17 04:00 97.7 70 18 123/72 98 Room Air 03/18/17 03:30 70 15 121/74 98 Room Air 03/18/17 03:15 73 03/18/17 03:00 74 15 117/67 98 Room Air 03/18/17 02:30 72 16 112/66 98 Room Air 03/18/17 02:00 114 18 129/81 98 Room Air 03/18/17 01:30 79 16 121/75 99 Room Air 03/18/17 01:05 76 20 100 Room Air 21 03/18/17 01:00 77 17 132/82 99 Room Air 03/18/17 00:55 72 03/18/17 00:55 78 16 98 Room Air 21 03/18/17 00:30 73 16 123/80 99 Room Air 03/18/17 00:00 98.4 82 20 131/85 99 Room Air 03/17/17 23:30 72 19 119/70 99 Room Air 03/17/17 23:00 76 17 129/77 98 Nasal Cannula 2.0 03/17/17 22:30 76 19 125/84 98 Nasal Cannula 2.0 03/17/17 22:00 78 19 133/78 98 Nasal Cannula 2.0 03/17/17 21:30 82 18 133/84 98 Nasal Cannula 2.0 03/17/17 21:00 87 19 133/82 98 Nasal Cannula 2.0 03/17/17 20:30 104 18 124/76 100 Room Air 03/17/17 20:00 98.5 83 19 122/72 98 Room Air 03/17/17 20:00 83 03/17/17 19:30 77 18 138/81 98 Room Air 03/17/17 19:18 80 16 100 Room Air 21 03/17/17 19:11 100 Nasal Cannula 2.0 28 03/17/17 19:11 Nasal Cannula 2.0 28 03/17/17 19:09 70 18 100 Nasal Cannula 2.0 28 03/17/17 19:00 77 18 124/82 100 Nasal Cannula 2.0 03/17/17 18:30 79 18 131/80 99 Nasal Cannula 2.0 03/17/17 18:20 98.1 03/17/17 18:00 76 18 132/79 99 Nasal Cannula 2.0 03/17/17 17:30 79 17 122/76 100 Nasal Cannula 2.0 03/17/17 17:00 81 18 124/79 100 Nasal Cannula 2.0 03/17/17 16:30 79 18 116/75 100 Nasal Cannula 2.0 03/17/17 16:00 87 03/17/17 16:00 98.1 87 16 117/75 100 Nasal Cannula 2.0 03/17/17 15:30 79 18 116/75 100 Nasal Cannula 2.0 03/17/17 15:00 82 18 119/75 100 Nasal Cannula 2.0 03/17/17 14:30 78 16 120/71 98 Nasal Cannula 2.0 03/17/17 14:00 78 16 115/71 100 Nasal Cannula 2.0 03/17/17 13:30 76 18 100 Nasal Cannula 2.0 28 03/17/17 13:30 82 18 118/76 100 Nasal Cannula 2.0 03/17/17 13:25 70 18 99 Nasal Cannula 2.0 28 03/17/17 13:00 75 18 124/76 100 Nasal Cannula 2.0 03/17/17 12:30 78 18 112/76 100 Nasal Cannula 2.0 03/17/17 12:05 98 104/71 03/17/17 12:05 98.1 03/17/17 12:00 98 03/17/17 12:00 98.5 98 17 104/71 100 Nasal Cannula 2.0 03/17/17 11:30 92 17 116/75 100 Nasal Cannula 2.0 03/17/17 11:00 89 18 118/78 100 Nasal Cannula 2.0 03/17/17 10:30 99 18 110/74 100 Nasal Cannula 2.0 03/17/17 10:00 98 18 113/74 100 Nasal Cannula 2.0 03/17/17 09:30 110 16 115/80 100 Nasal Cannula 2.0 General Appearance: no acute distress HEENT: normocephalic Respiratory/Chest: decreased breath sounds, crackles/rales Cardiovascular: normal peripheral pulses, tachycardia Abdomen: normal bowel sounds, soft, non tender Laboratory Tests 03/17/17 17:30: Urine Color Pale yellow, Urine Appearance Clear, Urine pH 5, Urine Specific [place] 1.005, Urine Protein Negative, Urine Glucose (UA) Negative, Urine Ketones Negative, Urine Occult Blood 4+H, Urine Nitrite Negative, Urine Bilirubin Negative, Urine Urobilinogen Normal, Urine Leukocyte Esterase 1+H, Urine RBC 10-15H, Urine WBC 2-4, Urine Squamous Epithelial Cells Occasional, Urine Bacteria Occasional 03/17/17 20:30: Vancomycin Level Trough 15.2H 03/18/17 04:00: White Blood Count 11.2H, Red Blood Count 3.74L, Hemoglobin 11.3L, Hematocrit 35.4L, Mean Corpuscular Volume 95, Mean Corpuscular Hemoglobin 30.1, Mean Corpuscular Hemoglobin Concent 31.8L, Red Cell Distribution Width 12.8, Platelet Count 112L, Mean Platelet Volume 8.1, Neutrophils (%) (Auto) , Lymphocytes (%) (Auto) , Monocytes (%) (Auto) , Eosinophils (%) (Auto) , Basophils (%) (Auto) , Differential Total Cells Counted 100, Neutrophils % ( Manual) 92H, Lymphocytes % (Manual) 8L, Monocytes % (Manual) 0L, Eosinophils % ( Manual) 0, Basophils % (Manual) 0, Band Neutrophils 0, Nucleated Red Blood Cells 1, Platelet Estimate DecreasedL, Platelet Morphology Normal, Red Blood Cell Morphology Normal, Sodium Level 142, Potassium Level 4.0, Chloride Level 98 , Carbon Dioxide Level 29, Anion Gap 15, Blood Urea Nitrogen 15, Creatinine 0.8 , Estimat Glomerular Filtration Rate > 60, Glucose Level 120H, Lactic Acid Level 3.90H, Calcium Level 7.8L Current Medications Medications (Trade) Dose Ordered Sig/Harvey Route PRN Reason Start Time Stop Time Status Last Admin Dose Admin Acetaminophen/ Hydrocodone Bitart ([place] 10/325) 1 ea Q4H PRN ORAL For Pain 03/17/17 17:00 03/24/17 16:59 03/18/17 03:34 Albuterol/ Ipratropium (DuoNeb 0.5-3(2.5)mg/3ml) 3 ml Q6HRT HHN 03/16/17 13:00 03/19/17 19:29 03/18/17 07:01 Amiodarone HCl (Cordarone) 200 mg EVERY 12 HOURS ORAL 03/17/17 17:00 04/16/17 16:59 03/17/17 20:37 Amiodarone HCl 900 mg/Dextrose 500 ml @ 0 mls/hr Q24H IV 03/17/17 21:30 03/18/17 21:29 03/17/17 20:34 Atenolol (Tenormin) 25 mg DAILY ORAL 03/17/17 09:00 04/15/17 08:59 03/17/17 08:32 Cefepime HCl 1 gm/ Dextrose 55 ml @ 110 mls/hr Q12HR@1100,2300 IVPB 03/17/17 23:00 03/24/17 22:59 03/17/17 22:43 Chlorhexidine Gluconate (Anny-Hex 2%) 1 applic QHS TOPIC 03/16/17 21:00 04/14/17 20:59 03/17/17 20:37 Enoxaparin Sodium (Lovenox) 60 mg EVERY 12 HOURS SUBQ 03/16/17 18:00 04/15/17 17:59 03/17/17 20:39 Fentanyl (Duragesic) 1 patch Q72H TDERMAL 03/16/17 10:30 03/23/17 10:29 03/16/17 10:27 Gabapentin (Neurontin) 300 mg THREE TIMES A DAY ORAL 03/16/17 13:00 04/14/17 08:59 03/17/17 17:21 Hydrocortisone (Solu-CORTEF) 100 mg EVERY 12 HOURS IV 03/17/17 21:00 04/13/17 19:44 03/17/17 20:37 Levetiracetam (Keppra) 500 mg Q12HR ORAL 03/16/17 21:00 04/13/17 20:59 03/17/17 20:38 Metronidazole 100 ml @ 100 mls/hr Q8HR IVPB 03/17/17 22:00 03/24/17 21:59 03/18/17 05:40 Miscellaneous Medication (fentaNYL Destruction) 1 ea Q72H MISC 03/19/17 10:30 04/18/17 10:29 Naloxone HCl (Narcan) 0.1 mg PRN IV Sedation scale 3 or 4 03/16/17 10:30 04/15/17 10:29 Ondansetron HCl (Zofran) 4 mg Q6H PRN IVP Nausea & Vomiting 03/16/17 13:30 04/15/17 07:29 Pantoprazole (Protonix) 40 mg EVERY 12 HOURS ORAL 03/16/17 21:00 04/13/17 20:59 03/17/17 20:38 Potassium Chloride (KCl 10% 40mEq Oral solution) 40 meq DAILY NG 03/18/17 09:00 04/17/17 08:59 Vancomycin HCl (Vanco rx to dose) 1 ea DAILYPRN PRN MISC Per rx protocol 03/16/17 10:45 04/13/17 10:44 Vancomycin HCl 1 gm/Dextrose 275 ml @ 183.708 mls/hr Q24H IVPB 03/17/17 21:00 03/22/17 20:59 03/17/17 20:38 Regan Hernandez MD Mar 18, 2017 09:24
[2017-03-18] MEDS: Atenolol 25mg tab ORAL SCH (09:39)
[2017-03-18] MEDS: Amiodarone 200mg tab ORAL SCH ×2 (09:40→20:41)
[2017-03-18] MEDS: KCl 10% 40mEq/30ml liquid NG SCH (09:41)
[2017-03-18] MEDS: Hydrocortisone 100mg Inj IV SCH ×2 (09:41→20:40)
[2017-03-18] MEDS: Enoxaparin 60mg Inj SUBQ SCH ×2 (09:49→20:41)
--- NOTE | 2017-03-18 10:00 | Consultation ---
DATE OF CONSULTATION: 03/17/2017 INFECTIOUS DISEASES CONSULTATION ATTENDING PHYSICIAN: Geo Oliver M.D. REASON FOR CONSULTATION: Sepsis, pneumonia, leukocytosis, fevers. CHIEF COMPLAINT: The patient's chief complaint coming in is respiratory insufficiency. HISTORY OF PRESENT ILLNESS: This is a 67-year-old female, who comes into [facility] with shortness of breath. The patient was noted to have CHF versus edema on chest x-ray. The patient also is febrile, elevated white count. Infectious Diseases consultation requested for antibiotic management. She is currently on vancomycin and cefepime and broad-spectrum antibiotics. The patient's white count has improved since yesterday and fevers have somewhat resolved. The patient was continued on antibiotics. Sputum culture is pending. MAR was noted. Orders noted. Notes and records were reviewed. She is currently in the ICU at [place]. PAST MEDICAL HISTORY: The patient has a past medical history of lupus, she is immunocompromised, anemia, pulmonary fibrosis. Other past medical history of hypertension, atrial fibrillation with rapid ventricular response, seizure, CHF, gout, and pulmonary edema. MEDICATIONS: Upon reviewing the MAR, she is on following medications. She is on fentanyl, potassium chloride, cefepime, diltiazem, atenolol, vancomycin, chlorhexidine, levetiracetam, which is Keppra, Protonix, pantoprazole, amiodarone, enoxaparin or Lovenox, hydrocortisone or Solu-Cortef, Zofran, Neurontin, Duo-Neb, hydrocodone, vancomycin, naloxone, Narcan, and Duragesic. Outside mediations noted and reconciled. ALLERGIES: No known drug allergies. No antibiotic allergies. SOCIAL HISTORY: Past smoker, but currently no alcohol, smoking, or drug abuse. FAMILY HISTORY: Noncontributory. REVIEW OF SYSTEMS: Constitutional: She has a Cruz. She has a femoral line that was placed in the emergency room. Head And Neck: No head pain or neck pain. She is responsive, alert and oriented x3. Cardiac: No chest pain. She is on Cardizem drip. Gastrointestinal: No nausea, vomiting, or diarrhea. Genitourinary: She has a Cruz. Pulmonary: Congested and short of breath. Some secretions, mostly whitish she said, but it did turn yellow also. Neurologic: No seizures. Head And Neck: No thrush or dysphagia. Skin: No rash or itching. Generalized weakness, fatigue, fever and chills coming in. No weight loss or night sweats. PHYSICAL EXAMINATION: GENERAL: Alert and responsive. She is oriented. She has generalized weakness. VITAL SIGNS: Temperature 98.1 degrees, pulse rate 78, respiratory rate 16, blood pressure 115/71, and saturation 100%. Pulse rate has been as high as 112. Temperature has been as high as 102 degrees. Initial respiratory rate was over 20, was as high as 22. HEAD AND NECK: Oral exam, no thrush. Eye exam, no icterus. Normocephalic. No facial droop. No neck stiffness. Neck is supple. HEART: Occasionally regular, but no gallop or murmur. LUNGS: Few bilateral rhonchi. Positive rales and crackles. ABDOMEN: Soft. Positive bowel sounds. Nontender. SKIN: No rash or dermatitis. MUSCULOSKELETAL: No effusion or contractures. Lower extremities are without cellulitis. PERIPHERAL VASCULAR: No cyanosis or gangrene. GENITOURINARY: She has a Cruz and urine is clear. LINES: Line site is without phlebitis. I discussed with nursing staff to change the femoral line to peripheral if possible. NEUROLOGIC: Generalized weakness and responsive. Nonfocal. She has a femoral line. LABORATORY DATA: White count was high as 17.0 and now it is 13.3, hemoglobin is 12.1. Creatinine is 0.7, potassium 3.0. White count 13.3 and hemoglobin 12.1. Urinalysis was negative for leukocyte esterase. Cultures, sputum culture pending. Blood culture is negative. MRSA and VRE screens are negative. . White count now 13.3 and hemoglobin 12.1. Highest 17 white count. IMAGING STUDIES: Chest x-ray showed the following, showed initial developmental patchy air space disease in the left upper lobe, edema versus pneumonia, bilateral interstitial disease, atelectasis, shows a retrocardiac opacification that seems to have improved. On followup chest x-ray, there is improved aeration and the opacities. ASSESSMENT AND PLAN: 1. The patient is septic with systemic inflammatory response syndrome criteria, has leukocytosis and fevers, heart rate over 100, fever as high as 102 degrees on admission, leukocytosis, mostly likely has pneumonia and sepsis. The patient has community-acquired pneumonia and also aspiration pneumonia based on location of the opacity and air space disease. Continue vancomycin and cefepime. I will consider adding Flagyl, especially if the patient has persistent hypokalemia as risk for Clostridium difficile or diarrhea. Mostly, Flagyl will add aspiration coverage. Continue vancomycin, cefepime, and Flagyl. Check sputum culture, followup labs, and chest x-ray. If the patient has diarrhea, we will check for Clostridium difficile. Of note, urinalysis is negative. 2. Lupus. 3. Immunocompromised. 4. Anemia. 5. Pulmonary fibrosis. 6. Hypertension. 7. Atrial fibrillation with rapid ventricular response. 8. Seizures. 9. Congestive heart failure. 10. Pulmonary edema. 11. Gout. 12. Intensive care unit care. 13. Case was discussed with RN. 14. No known allergies. 15. Social history is negative. 16. Family history is noncontributory. 17. MAR was noted. 18. Notes and records were reviewed. 19. Continue treatment per primary consultants. 20. Skin care protocol. Мария Joseph M.D. DR: CHRISTA JOB#: [id number] CC:
[2017-03-18] MEDS: Cefepime HCl 1 GM in D5W 55 ML IVPB SCH ×2 (11:35→22:57)
--- NOTE | 2017-03-18 20:15 | Infectious Diseases Prog Note ---
Assessment/Plan Assessment/Plan A) 1) sepsis, pna, leukocytosis and fevers, ua negative, lactic acidosis 2) lupus, immunocompromised 3) anemia, pulmonary fibrosis, htn, af with rvr, sz, chf, gout, pulmonary edema 4) allergies - nkda 5) fh - nc, sh-negative, mar noted, notes and records reviewed 6) d/w RN P) 1) vancomycin, cefepime and flagyl, steroids 2) check sc, labs and chest x-ray 3) continue treatment per primary and consultants 4) orders noted and entered 5) d/w patient Subjective Constitutional: Denies: fever HEENT: Reports: congestion - less Respiratory: Reports: shortness of breath - less Gastrointestinal/Abdominal: Denies: nausea, vomiting, diarrhea Genitourinary: Reports: other - + scott Neurologic: Denies: headache Psychiatric: Denies: depression Skin: Denies: rash Hematologic: Denies: bleeding Musculoskeletal: Denies: pain Allergies: Coded Allergies: NO KNOWN ALLERGIES (Unverified Allergy, Unknown, 06/30/16) Objective Vital Signs Last 24 Hour Vital Signs Date Time Temp Pulse Resp B/P (MAP) Pulse Ox O2 Delivery O2 Flow Rate FiO2 03/18/17 19:00 70 16 134/81 98 Room Air 03/18/17 18:30 73 16 129/80 98 Room Air 03/18/17 18:00 77 15 134/89 98 Room Air 03/18/17 17:30 81 15 136/86 98 Room Air 03/18/17 17:00 82 15 117/67 98 Room Air 03/18/17 16:30 68 14 118/87 98 Room Air 03/18/17 16:00 70 03/18/17 16:00 97.5 71 16 111/70 99 Room Air 03/18/17 15:30 67 14 123/80 99 Room Air 03/18/17 15:00 69 15 120/77 99 Room Air 03/18/17 14:30 74 16 111/69 99 Room Air 03/18/17 14:00 68 15 108/72 98 Room Air 03/18/17 13:30 72 15 102/66 98 Room Air 03/18/17 13:21 79 20 100 Room Air 03/18/17 13:10 72 16 99 Room Air 03/18/17 13:00 73 17 115/76 99 Room Air 03/18/17 12:30 77 15 108/61 100 Room Air 03/18/17 12:00 98.3 77 17 126/85 99 Room Air 03/18/17 12:00 72 03/18/17 11:30 77 18 123/80 99 Room Air 03/18/17 11:00 71 22 119/67 98 Room Air 03/18/17 10:30 72 18 125/75 99 Room Air 03/18/17 10:00 81 18 119/68 99 Room Air 03/18/17 09:39 87 117/74 03/18/17 09:30 72 18 117/74 99 Room Air 03/18/17 09:00 72 17 126/91 99 Room Air 03/18/17 08:30 72 17 128/55 99 Room Air 03/18/17 08:00 98.0 72 20 119/74 99 Room Air 03/18/17 07:59 72 03/18/17 07:30 72 14 113/69 98 Room Air 03/18/17 07:07 74 20 100 Room Air 21 03/18/17 07:03 Room Air 03/18/17 07:00 72 15 125/72 97 Room Air 03/18/17 06:56 71 16 99 Room Air 21 03/18/17 06:55 99 Nasal Cannula 21.0 21 03/18/17 06:50 66 14 114/71 97 Room Air 03/18/17 06:45 75 14 118/62 96 Room Air 03/18/17 06:40 71 14 126/94 96 Room Air 03/18/17 06:35 67 15 96 Room Air 03/18/17 06:30 68 13 111/68 96 Room Air 03/18/17 06:00 72 15 106/71 97 Room Air 03/18/17 05:30 77 14 115/70 98 Room Air 03/18/17 05:00 70 14 122/69 98 Room Air 03/18/17 04:30 71 15 116/70 98 Room Air 03/18/17 04:00 97.7 70 18 123/72 98 Room Air 03/18/17 03:30 70 15 121/74 98 Room Air 03/18/17 03:15 73 03/18/17 03:00 74 15 117/67 98 Room Air 03/18/17 02:30 72 16 112/66 98 Room Air 03/18/17 02:00 114 18 129/81 98 Room Air 03/18/17 01:30 79 16 121/75 99 Room Air 03/18/17 01:05 76 20 100 Room Air 21 03/18/17 01:00 77 17 132/82 99 Room Air 03/18/17 00:55 72 03/18/17 00:55 78 16 98 Room Air 21 03/18/17 00:30 73 16 123/80 99 Room Air 03/18/17 00:00 98.4 82 20 131/85 99 Room Air 03/17/17 23:30 72 19 119/70 99 Room Air 03/17/17 23:00 76 17 129/77 98 Nasal Cannula 2.0 03/17/17 22:30 76 19 125/84 98 Nasal Cannula 2.0 03/17/17 22:00 78 19 133/78 98 Nasal Cannula 2.0 03/17/17 21:30 82 18 133/84 98 Nasal Cannula 2.0 03/17/17 21:00 87 19 133/82 98 Nasal Cannula 2.0 03/17/17 20:30 104 18 124/76 100 Room Air Height (Feet): 5 Height (Inches): 6.00 Weight (Pounds): 138 General Appearance: no acute distress HEENT: normocephalic, atraumatic, anicteric, mucous membranes moist, EOMI, pharynx normal, supple, no JVD Respiratory/Chest: crackles/rales, rhonchi - bilaterally Cardiovascular: normal rate, regular rhythm, no gallop/murmur, no JVD Abdomen: normal bowel sounds, soft, non tender, no organomegaly, non distended Genitourinary: other - + scott - urine clear Extremities: no cyanosis Skin: no rash Neurologic/Psychiatric: interventional pain physician II-XII grossly normal, no motor/sensory deficits, abnormal gait, alert, oriented x 3, responsive Lymphatic: no neck adenopathy Musculoskeletal: no effusion Objective 03/17 - chest x-ray Impression: Significant interval improvement in interstitial opacities probably edema. Microbiology Date/Time Source Procedure Growth Status 03/17/17 19:45 Sputum Gram Stain - Final Resulted 03/17/17 19:45 Sputum Sputum Culture Pending Resulted Laboratory Tests Test 03/17/17 20:30 03/18/17 04:00 03/18/17 08:30 Vancomycin Level Trough 15.2 ug/mL (5.0-12.0) H White Blood Count 11.2 K/UL (4.8-10.8) H Red Blood Count 3.74 M/UL (4.20-5.40) L Hemoglobin 11.3 G/DL (12.0-16.0) L Hematocrit 35.4 % (37.0-47.0) L Mean Corpuscular Volume 95 FL (80-99) Mean Corpuscular Hemoglobin 30.1 PG (27.0-31.0) Mean Corpuscular Hemoglobin Concent 31.8 G/DL (32.0-36.0) L Red Cell Distribution Width 12.8 % (11.6-14.8) Platelet Count 112 K/UL (150-450) L Mean Platelet Volume 8.1 FL (6.5-10.1) Neutrophils (%) (Auto) % (45.0-75.0) Lymphocytes (%) (Auto) % (20.0-45.0) Monocytes (%) (Auto) % (1.0-10.0) Eosinophils (%) (Auto) % (0.0-3.0) Basophils (%) (Auto) % (0.0-2.0) Differential Total Cells Counted 100 Neutrophils % (Manual) 92 % (45-75) H Lymphocytes % (Manual) 8 % (20-45) L Monocytes % (Manual) 0 % (1-10) L Eosinophils % (Manual) 0 % (0-3) Basophils % (Manual) 0 % (0-2) Band Neutrophils 0 % (0-8) Nucleated Red Blood Cells 1 /100 WBC Platelet Estimate Decreased L Platelet Morphology Normal Red Blood Cell Morphology Normal Sodium Level 142 mEQ/L (135-145) Potassium Level 4.0 mEQ/L (3.4-4.9) Chloride Level 98 mEQ/L (98-107) Carbon Dioxide Level 29 mEQ/L (20-30) Anion Gap 15 (5-15) Blood Urea Nitrogen 15 mg/dL (7-23) Creatinine 0.8 mg/dL (0.5-0.9) Estimat Glomerular Filtration Rate > 60 mL/min (>60) Glucose Level 120 mg/dL (74-106) H Lactic Acid Level 3.90 mmol/L (0.66-2.22) H 5.10 mmol/L (0.66-2.22) H Calcium Level 7.8 mg/dL (8.6-10.2) L Current Medications Medications (Trade) Dose Ordered Sig/Harvey Route PRN Reason Start Time Stop Time Status Last Admin Dose Admin Acetaminophen/ Hydrocodone Bitart ([place] 10/325) 1 ea Q4H PRN ORAL For Pain 03/17/17 17:00 03/24/17 16:59 03/18/17 15:09 Albuterol/ Ipratropium (DuoNeb 0.5-3(2.5)mg/3ml) 3 ml Q6HRT HHN 03/16/17 13:00 03/19/17 19:29 03/18/17 13:14 Amiodarone HCl (Cordarone) 200 mg EVERY 12 HOURS ORAL 03/17/17 17:00 04/16/17 16:59 03/18/17 09:40 Amiodarone HCl 900 mg/Dextrose 500 ml @ 0 mls/hr Q24H IV 03/17/17 21:30 03/18/17 21:29 03/17/17 20:34 Atenolol (Tenormin) 25 mg DAILY ORAL 03/17/17 09:00 04/15/17 08:59 03/18/17 09:39 Cefepime HCl 1 gm/ Dextrose 55 ml @ 110 mls/hr Q12HR@1100,2300 IVPB 03/17/17 23:00 03/24/17 22:59 03/18/17 11:35 Chlorhexidine Gluconate (Anny-Hex 2%) 1 applic QHS TOPIC 03/16/17 21:00 04/14/17 20:59 03/17/17 20:37 Enoxaparin Sodium (Lovenox) 60 mg EVERY 12 HOURS SUBQ 03/16/17 18:00 04/15/17 17:59 03/18/17 09:49 Fentanyl (Duragesic) 1 patch Q72H TDERMAL 03/16/17 10:30 03/23/17 10:29 03/16/17 10:27 Gabapentin (Neurontin) 300 mg THREE TIMES A DAY ORAL 03/16/17 13:00 04/14/17 08:59 03/18/17 18:20 Hydrocortisone (Solu-CORTEF) 100 mg EVERY 12 HOURS IV 03/17/17 21:00 04/13/17 19:44 03/18/17 09:41 Levetiracetam (Keppra) 500 mg Q12HR ORAL 03/16/17 21:00 04/13/17 20:59 03/18/17 09:39 Metronidazole 100 ml @ 100 mls/hr Q8HR IVPB 03/17/17 22:00 03/24/17 21:59 03/18/17 14:37 Miscellaneous Medication (fentaNYL Destruction) 1 ea Q72H MISC 03/19/17 10:30 04/18/17 10:29 Naloxone HCl (Narcan) 0.1 mg PRN IV Sedation scale 3 or 4 03/16/17 10:30 04/15/17 10:29 Ondansetron HCl (Zofran) 4 mg Q6H PRN IVP Nausea & Vomiting 03/16/17 13:30 04/15/17 07:29 Pantoprazole (Protonix) 40 mg EVERY 12 HOURS ORAL 03/16/17 21:00 04/13/17 20:59 03/18/17 09:39 Potassium Chloride (KCl 10% 40mEq Oral solution) 40 meq DAILY NG 03/18/17 09:00 04/17/17 08:59 03/18/17 09:41 Vancomycin HCl (Vanco rx to dose) 1 ea DAILYPRN PRN MISC Per rx protocol 03/16/17 10:45 04/13/17 10:44 Vancomycin HCl 1 gm/Dextrose 275 ml @ 183.708 mls/hr Q24H IVPB 03/17/17 21:00 03/22/17 20:59 03/17/17 20:38 DIMITRI RIVERA Mar 18, 2017 20:15
[2017-03-18] MEDS: Dyna-Hex 2% Top Sol 8oz TOPIC SCH (20:41)
[2017-03-18] MEDS: Vancomycin 1 GM in D5W 275 ML IVPB SCH (20:41)
[2017-03-18] MEDS ORDERED: KCl 10% 40mEq/30ml liquid ORAL ONE (21:20)
[2017-03-19] VITALS (21 sets, daily range): BP systolic 120–154; BP diastolic 67–92
[2017-03-19] MEDS: DuoNeb 0.5-3(2.5)mg/3ml neb HHN SCH ×3 (02:47→13:24)
--- NOTE | 2017-03-19 04:15 | Progress Note ---
DATE: 03/18/2017 INTERNAL MEDICINE PROGRESS NOTE SUBJECTIVE: The patient remained in the intensive care unit. She is awake and alert with less shortness of breath. Chest x-ray yesterday revealed decreased infiltrates and edema. Monitor now sinus arrhythmias with frequent PACs. OBJECTIVE: VITAL SIGNS: Blood pressure 124/60, pulse 90, and respirations 18. LUNGS: Few rales bilaterally. HEART: Regular rhythm and rate. Normal S1 and S2 with ectopic beats. ABDOMEN: Soft. EXTREMITIES: No edema. Right groin central catheter is without signs of infection. LABORATORY DATA: Laboratories reviewed. IMPRESSION: improving. PLAN: 1. Discontinue high-dose Lovenox. 2. Initiate subcutaneous heparin for DVT prophylaxis because the patient is at high risk of bleeding complications and falls at home. 3. Continue amiodarone. 4. Continue diuresis. 5. Continue antimicrobials. 6. Taper stress dose steroids. Geo Oliver M.D. DR: ERICK JOB#: [id number] CC:
[2017-03-19] MEDS: metroNIDAZOLE 500mg 100 ML IVPB SCH ×3 (05:35→22:30)
[2017-03-19 05:56] LABS: MEAN CORPUSCULAR HEMOGLOBIN 30.3 PG (27.0-31.0); MEAN CORPUSCULAR VOLUME 95 FL (80-99); PLATELET COUNT 150 K/UL (150-450); RED BLOOD COUNT 3.99 M/UL (4.20-5.40); RED CELL DISTRIBUTION WIDTH 12.9 % (11.6-14.8)
[2017-03-19 06:21] LABS: ANION GAP 12 (5-15); CALCIUM 7.8 mg/dL (8.6-10.2); CARBON DIOXIDE 31 mEQ/L (20-30); CHLORIDE 97 mEQ/L (98-107); CREATININE 0.8 mg/dL (0.5-0.9); GLOMERULAR FILTRATION RATE > 60 mL/min (>60); HEMOLYSIS 73; POTASSIUM 4.7 mEQ/L (3.4-4.9); SODIUM 140 mEQ/L (135-145)
[2017-03-19 06:22] LABS: REFLEX LACTIC ACID YES OR NO YES
[2017-03-19 06:32] LABS: MAGNESIUM 1.5 mg/dL (1.7-2.5)
[2017-03-19] MEDS: Amiodarone 200mg tab ORAL SCH ×2 (08:42→20:39)
[2017-03-19] MEDS: Norco 10mg/325mg tab ORAL PRN ×2 (08:42→20:41)
[2017-03-19] MEDS: KCl 10% 40mEq/30ml liquid NG SCH (08:42)
[2017-03-19] MEDS: Atenolol 25mg tab ORAL SCH (08:42)
[2017-03-19] MEDS ORDERED: Heparin 5000 units/ml inj SUBQ SCH (09:00)
[2017-03-19] MEDS ORDERED: PredniSONE 20mg tab ORAL SCH (09:00)
--- NOTE | 2017-03-19 09:55 | Pulmonology Progress Note ---
Assessment/Plan Assessment/Plan IMPRESSION: 1. Pneumonia. 2. Pulmonary fibrosis. 3. Lupus. 4. Hypertension. 5. A.fib + RVR DISCUSSION: Continue antibiotics. Continue Zofran and [place]. Continue oxygen. Pulmonary hygiene. Rate control. Agree with taper of steroids Transfer to tele DC planning Subjective Interval Events: Looking mucg better; off O2 Constitutional: Reports: no symptoms HEENT: Repors: no symptoms Respiratory: Reports: shortness of breath Cardiovascular: Reports: no symptoms Gastrointestinal/Abdominal: Reports: no symptoms Genitourinary: Reports: no symptoms Neurologic: Reports: no symptoms Allergies: Coded Allergies: NO KNOWN ALLERGIES (Unverified Allergy, Unknown, 06/30/16) Objective Last 24 Hour Vital Signs Date Time Temp Pulse Resp B/P (MAP) Pulse Ox O2 Delivery O2 Flow Rate FiO2 03/19/17 09:40 98.1 03/19/17 08:42 120 166/93 03/19/17 08:00 82 03/19/17 08:00 98.1 89 18 150/76 98 Nasal Cannula 2.0 03/19/17 07:24 79 20 100 Room Air 21 03/19/17 07:13 Room Air 21 03/19/17 07:13 76 18 97 Room Air 21 03/19/17 07:13 97 Room Air 21 03/19/17 07:00 77 16 151/80 98 Nasal Cannula 2.0 03/19/17 06:00 74 16 149/84 100 Nasal Cannula 2.0 03/19/17 05:00 81 16 148/88 100 Nasal Cannula 2.0 03/19/17 04:00 77 03/19/17 04:00 97.9 77 18 144/92 100 Nasal Cannula 2.0 03/19/17 03:00 78 16 140/76 99 Nasal Cannula 2.0 03/19/17 02:00 78 16 136/78 99 Nasal Cannula 2.0 03/19/17 01:45 82 20 98 Room Air 21 03/19/17 01:30 80 18 96 Room Air 21 03/19/17 01:00 68 16 133/76 99 Nasal Cannula 2.0 03/19/17 00:00 98.8 67 16 133/76 95 Room Air 03/19/17 00:00 82 03/18/17 23:00 73 16 154/100 100 Room Air 03/18/17 22:00 77 16 142/91 100 Room Air 03/18/17 21:00 82 16 155/106 100 Room Air 03/18/17 20:00 97.8 72 17 130/80 100 Room Air 03/18/17 20:00 72 03/18/17 19:45 78 20 99 Room Air 03/18/17 19:30 97 Room Air 03/18/17 19:30 74 16 130/80 100 Room Air 03/18/17 19:30 Room Air 03/18/17 19:30 74 18 97 Room Air 21 03/18/17 19:00 70 16 134/81 98 Room Air 03/18/17 18:30 73 16 129/80 98 Room Air 03/18/17 18:00 77 15 134/89 98 Room Air 03/18/17 17:30 81 15 136/86 98 Room Air 03/18/17 17:00 82 15 117/67 98 Room Air 03/18/17 16:30 68 14 118/87 98 Room Air 03/18/17 16:00 70 03/18/17 16:00 97.5 71 16 111/70 99 Room Air 03/18/17 15:30 67 14 123/80 99 Room Air 03/18/17 15:00 69 15 120/77 99 Room Air 03/18/17 14:30 74 16 111/69 99 Room Air 03/18/17 14:00 68 15 108/72 98 Room Air 03/18/17 13:30 72 15 102/66 98 Room Air 03/18/17 13:21 79 20 100 Room Air 03/18/17 13:10 72 16 99 Room Air 03/18/17 13:00 73 17 115/76 99 Room Air 03/18/17 12:30 77 15 108/61 100 Room Air 03/18/17 12:00 98.3 77 17 126/85 99 Room Air 03/18/17 12:00 72 03/18/17 11:30 77 18 123/80 99 Room Air 03/18/17 11:00 71 22 119/67 98 Room Air 03/18/17 10:30 72 18 125/75 99 Room Air 03/18/17 10:00 81 18 119/68 99 Room Air Intake and Output 03/19/17 03/20/17 19:00 07:00 Output Total 150 ml Balance -150 ml Output Urine Total 150 ml General Appearance: no acute distress HEENT: normocephalic Respiratory/Chest: chest wall non-tender, crackles/rales Cardiovascular: normal peripheral pulses, murmur systolic Abdomen: normal bowel sounds, soft, non tender Microbiology Date/Time Source Procedure Growth Status 03/17/17 19:45 Sputum Gram Stain - Final Resulted 03/17/17 19:45 Sputum Sputum Culture - Preliminary Resulted Laboratory Tests 03/19/17 05:00: White Blood Count 10.0, Red Blood Count 3.99L, Hemoglobin 12.1, Hematocrit 37.8 , Mean Corpuscular Volume 95, Mean Corpuscular Hemoglobin 30.3, Mean Corpuscular Hemoglobin Concent 32.0, Red Cell Distribution Width 12.9, Platelet Count 150, Mean Platelet Volume 9.0, Neutrophils (%) (Auto) , Lymphocytes (%) ( Auto) , Monocytes (%) (Auto) , Eosinophils (%) (Auto) , Basophils (%) (Auto) , Neutrophils % (Manual) [Pending], Lymphocytes % (Manual) [Pending], Platelet Estimate [Pending], Platelet Morphology [Pending], Sodium Level 140, Potassium Level 4.7, Chloride Level 97L, Carbon Dioxide Level 31H, Anion Gap 12, Blood Urea Nitrogen 17, Creatinine 0.8, Estimat Glomerular Filtration Rate > 60, Glucose Level 111H, Lactic Acid Level 3.00H, Calcium Level 7.8L, Magnesium Level 1.5L, Pro-B-Type Natriuretic Peptide 3480H Current Medications Medications (Trade) Dose Ordered Sig/Harvey Route PRN Reason Start Time Stop Time Status Last Admin Dose Admin Acetaminophen/ Hydrocodone Bitart ([place] 10/325) 1 ea Q4H PRN ORAL For Pain 03/17/17 17:00 03/24/17 16:59 03/19/17 08:42 Albuterol/ Ipratropium (DuoNeb 0.5-3(2.5)mg/3ml) 3 ml Q6HRT HHN 03/16/17 13:00 03/19/17 19:29 03/19/17 07:13 Amiodarone HCl (Cordarone) 200 mg EVERY 12 HOURS ORAL 03/17/17 17:00 04/16/17 16:59 03/19/17 08:42 Atenolol (Tenormin) 25 mg DAILY ORAL 03/17/17 09:00 04/15/17 08:59 03/19/17 08:42 Cefepime HCl 1 gm/ Dextrose 55 ml @ 110 mls/hr Q12HR@1100,2300 IVPB 03/17/17 23:00 03/24/17 22:59 03/18/17 22:57 Chlorhexidine Gluconate (Anny-Hex 2%) 1 applic QHS TOPIC 03/16/17 21:00 04/14/17 20:59 03/18/17 20:41 Fentanyl (Duragesic) 1 patch Q72H TDERMAL 03/16/17 10:30 03/23/17 10:29 03/16/17 10:27 Gabapentin (Neurontin) 300 mg THREE TIMES A DAY ORAL 03/16/17 13:00 04/14/17 08:59 03/19/17 08:43 Heparin Sodium (Porcine) (Heparin 5000 units/ml) 5,000 units EVERY 12 HOURS SUBQ 03/19/17 09:00 04/18/17 08:59 03/19/17 08:43 Levetiracetam (Keppra) 500 mg Q12HR ORAL 03/16/17 21:00 04/13/17 20:59 03/19/17 08:42 Metronidazole 100 ml @ 100 mls/hr Q8HR IVPB 03/17/17 22:00 03/24/17 21:59 03/19/17 05:35 Miscellaneous Medication (fentaNYL Destruction) 1 ea Q72H MISC 03/19/17 10:30 04/18/17 10:29 Naloxone HCl (Narcan) 0.1 mg PRN IV Sedation scale 3 or 4 03/16/17 10:30 04/15/17 10:29 Ondansetron HCl (Zofran) 4 mg Q6H PRN IVP Nausea & Vomiting 03/16/17 13:30 04/15/17 07:29 Pantoprazole (Protonix) 40 mg EVERY 12 HOURS ORAL 03/16/17 21:00 04/13/17 20:59 03/19/17 08:42 Potassium Chloride (KCl 10% 40mEq Oral solution) 40 meq DAILY NG 03/18/17 09:00 04/17/17 08:59 03/19/17 08:42 Prednisone (predniSONE) 20 mg DAILY ORAL 03/19/17 09:00 04/18/17 08:59 03/19/17 08:41 Vancomycin HCl (Vanco rx to dose) 1 ea DAILYPRN PRN MISC Per rx protocol 03/16/17 10:45 04/13/17 10:44 Vancomycin HCl 1 gm/Dextrose 275 ml @ 183.708 mls/hr Q24H IVPB 03/17/17 21:00 03/22/17 20:59 03/18/17 20:41 Regan Hernandez MD Mar 19, 2017 09:55
[2017-03-19] MEDS ORDERED: fentaNYL Destruction MISC SCH ×2 (10:00→10:30)
[2017-03-19 10:05] LABS: BAND NEUTROPHILS % (MANUAL) 0 % (0-8); BASOPHILS % (MANUAL) 0 % (0-2); EOSINOPHILS % (MANUAL) 0 % (0-3); LYMPHOCYTES % (MANUAL) 13 % (20-45); NEUTROPHILS % (MANUAL) 80 % (45-75); PLATELET ESTIMATE ADEQUATE; PLATELET MORPHOLOGY NORMAL; TOTAL CELLS COUNTED 100
[2017-03-19] MEDS: Cefepime HCl 1 GM in D5W 55 ML IVPB SCH ×2 (11:10→23:33)
--- NOTE | 2017-03-19 12:37 | Diagnostic Imaging Report ---
Indication: Dyspnea Comparison: 03/17/17 A single view chest radiograph was obtained. Findings: The heart is enlarged. Basilar reticular densities are present likely atelectasis. This is unchanged. Bones are osteopenic. Impression: No acute findings
[2017-03-19] MEDS ORDERED: Levophed 4mg/4mL Inj IV ONE (15:59)
[2017-03-19] MEDS ORDERED: Tubing IV Secondary IV ONE (16:03)
[2017-03-19] MEDS ORDERED: NS 275ml ONE (16:03)
--- NOTE | 2017-03-19 16:22 | Infectious Diseases Prog Note ---
Assessment/Plan Assessment/Plan A) 1) sepsis, pna, leukocytosis and fevers, ua negative, lactic acidosis - leukocytosis and chest x-ray better - clinically improved 2) lupus, immunocompromised 3) anemia, pulmonary fibrosis, htn, af with rvr, sz, chf, gout, pulmonary edema 4) allergies - nkda 5) fh - nc, sh-negative, mar noted, notes and records reviewed 6) d/w RN P) 1) vancomycin, cefepime and flagyl, on steroids 2) check sc, labs and chest x-ray 3) continue treatment per primary and consultants 4) orders noted and entered 5) d/w patient Subjective Constitutional: Denies: fever HEENT: Reports: congestion - less Respiratory: Reports: shortness of breath - less Cardiovascular: Denies: chest pain Gastrointestinal/Abdominal: Denies: nausea Genitourinary: Reports: other - + scott Neurologic: Denies: headache Psychiatric: Denies: depression Skin: Denies: rash Hematologic: Denies: bleeding Musculoskeletal: Denies: pain Allergies: Coded Allergies: NO KNOWN ALLERGIES (Unverified Allergy, Unknown, 06/30/16) Objective Vital Signs Last 24 Hour Vital Signs Date Time Temp Pulse Resp B/P (MAP) Pulse Ox O2 Delivery O2 Flow Rate FiO2 03/19/17 15:00 72 20 137/77 100 Nasal Cannula 2.0 03/19/17 14:00 72 20 120/67 98 Nasal Cannula 2.0 03/19/17 13:34 75 18 100 Room Air 21 03/19/17 13:22 71 18 98 Room Air 21 03/19/17 13:00 70 22 141/90 98 Nasal Cannula 2.0 03/19/17 12:00 98.5 75 20 152/79 97 Nasal Cannula 2.0 03/19/17 12:00 78 03/19/17 11:40 98.1 03/19/17 11:00 70 22 139/85 98 Nasal Cannula 2.0 03/19/17 10:00 85 22 153/90 98 Nasal Cannula 2.0 03/19/17 09:40 98.1 03/19/17 09:00 89 18 154/76 100 Nasal Cannula 2.0 03/19/17 08:42 120 166/93 03/19/17 08:00 82 03/19/17 08:00 98.1 89 18 150/76 98 Nasal Cannula 2.0 03/19/17 07:24 79 20 100 Room Air 21 03/19/17 07:13 Room Air 21 03/19/17 07:13 76 18 97 Room Air 21 03/19/17 07:13 97 Room Air 21 03/19/17 07:00 77 16 151/80 98 Nasal Cannula 2.0 03/19/17 06:00 74 16 149/84 100 Nasal Cannula 2.0 03/19/17 05:00 81 16 148/88 100 Nasal Cannula 2.0 03/19/17 04:00 77 03/19/17 04:00 97.9 77 18 144/92 100 Nasal Cannula 2.0 03/19/17 03:00 78 16 140/76 99 Nasal Cannula 2.0 03/19/17 02:00 78 16 136/78 99 Nasal Cannula 2.0 03/19/17 01:45 82 20 98 Room Air 21 03/19/17 01:30 80 18 96 Room Air 03/19/17 01:00 68 16 133/76 99 Nasal Cannula 2.0 03/19/17 00:00 98.8 67 16 133/76 95 Room Air 03/19/17 00:00 82 03/18/17 23:00 73 16 154/100 100 Room Air 03/18/17 22:00 77 16 142/91 100 Room Air 03/18/17 21:00 82 16 155/106 100 Room Air 03/18/17 20:00 97.8 72 17 130/80 100 Room Air 03/18/17 20:00 72 03/18/17 19:45 78 20 99 Room Air 03/18/17 19:30 97 Room Air 21 03/18/17 19:30 74 16 130/80 100 Room Air 03/18/17 19:30 Room Air 21 03/18/17 19:30 74 18 97 Room Air 21 03/18/17 19:00 70 16 134/81 98 Room Air 03/18/17 18:30 73 16 129/80 98 Room Air 03/18/17 18:00 77 15 134/89 98 Room Air 03/18/17 17:30 81 15 136/86 98 Room Air 03/18/17 17:00 82 15 117/67 98 Room Air 03/18/17 16:30 68 14 118/87 98 Room Air Height (Feet): 5 Height (Inches): 6.00 Weight (Pounds): 136 General Appearance: no acute distress HEENT: normocephalic, atraumatic, anicteric, mucous membranes moist, PERRL, EOMI, pharynx normal, supple, no JVD Respiratory/Chest: crackles/rales - few, rhonchi - bilaterally - few Cardiovascular: normal rate, regular rhythm, regularly irregular, no JVD Abdomen: normal bowel sounds, soft, non tender, no organomegaly, non distended Genitourinary: other - + scott - urine clear Extremities: no cyanosis Skin: no rash 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 03/19 - chest x-ray - bilateral atx Microbiology Date/Time Source Procedure Growth Status 03/14/17 09:10 Blood Blood Culture - Preliminary NO GROWTH AFTER 4 DAYS Resulted 03/17/17 19:45 Sputum Gram Stain - Final Resulted 03/17/17 19:45 Sputum Sputum Culture - Preliminary Resulted 03/14/17 09:20 Rectum VRE Culture - Final NO VANCOMYCIN RESISTANT ENTEROCOCCUS ... Complete Microbiology Date/Time Source Procedure Growth Status 03/17/17 19:45 Sputum Gram Stain - Final Resulted 03/17/17 19:45 Sputum Sputum Culture - Preliminary Resulted Laboratory Tests Test 03/19/17 05:00 03/19/17 09:45 White Blood Count 10.0 K/UL (4.8-10.8) Red Blood Count 3.99 M/UL (4.20-5.40) L Hemoglobin 12.1 G/DL (12.0-16.0) Hematocrit 37.8 % (37.0-47.0) Mean Corpuscular Volume 95 FL (80-99) Mean Corpuscular Hemoglobin 30.3 PG (27.0-31.0) Mean Corpuscular Hemoglobin Concent 32.0 G/DL (32.0-36.0) Red Cell Distribution Width 12.9 % (11.6-14.8) Platelet Count 150 K/UL (150-450) Mean Platelet Volume 9.0 FL (6.5-10.1) Neutrophils (%) (Auto) % (45.0-75.0) Lymphocytes (%) (Auto) % (20.0-45.0) Monocytes (%) (Auto) % (1.0-10.0) Eosinophils (%) (Auto) % (0.0-3.0) Basophils (%) (Auto) % (0.0-2.0) Differential Total Cells Counted 100 Neutrophils % (Manual) 80 % (45-75) H Lymphocytes % (Manual) 13 % (20-45) L Monocytes % (Manual) 7 % (1-10) Eosinophils % (Manual) 0 % (0-3) Basophils % (Manual) 0 % (0-2) Band Neutrophils 0 % (0-8) Platelet Estimate Adequate Platelet Morphology Normal Red Blood Cell Morphology Normal Sodium Level 140 mEQ/L (135-145) Potassium Level 4.7 mEQ/L (3.4-4.9) Chloride Level 97 mEQ/L (98-107) L Carbon Dioxide Level 31 mEQ/L (20-30) H Anion Gap 12 (5-15) Blood Urea Nitrogen 17 mg/dL (7-23) Creatinine 0.8 mg/dL (0.5-0.9) Estimat Glomerular Filtration Rate > 60 mL/min (>60) Glucose Level 111 mg/dL (74-106) H Lactic Acid Level 3.00 mmol/L (0.66-2.22) H 4.10 mmol/L (0.66-2.22) H Calcium Level 7.8 mg/dL (8.6-10.2) L Magnesium Level 1.5 mg/dL (1.7-2.5) L Pro-B-Type Natriuretic Peptide 3480 pg/mL (0-125) H Current Medications Medications (Trade) Dose Ordered Sig/Harvey Route PRN Reason Start Time Stop Time Status Last Admin Dose Admin Acetaminophen/ Hydrocodone Bitart ([place] 10/325) 1 ea Q4H PRN ORAL For Pain 03/17/17 17:00 03/24/17 16:59 03/19/17 08:42 Albuterol/ Ipratropium (DuoNeb 0.5-3(2.5)mg/3ml) 3 ml Q6HRT HHN 03/16/17 13:00 03/19/17 19:29 03/19/17 13:24 Amiodarone HCl (Cordarone) 200 mg EVERY 12 HOURS ORAL 03/17/17 17:00 04/16/17 16:59 03/19/17 08:42 Atenolol (Tenormin) 25 mg DAILY ORAL 03/17/17 09:00 04/15/17 08:59 03/19/17 08:42 Cefepime HCl 1 gm/ Dextrose 55 ml @ 110 mls/hr Q12HR@1100,2300 IVPB 03/17/17 23:00 03/24/17 22:59 03/19/17 11:10 Chlorhexidine Gluconate (Anny-Hex 2%) 1 applic QHS TOPIC 03/16/17 21:00 04/14/17 20:59 03/18/17 20:41 Fentanyl (Duragesic) 1 patch Q72H TDERMAL 03/16/17 10:30 03/23/17 10:29 03/19/17 11:11 Gabapentin (Neurontin) 300 mg THREE TIMES A DAY ORAL 03/16/17 13:00 04/14/17 08:59 03/19/17 13:31 Heparin Sodium (Porcine) (Heparin 5000 units/ml) 5,000 units EVERY 12 HOURS SUBQ 03/19/17 09:00 04/18/17 08:59 03/19/17 08:43 Levetiracetam (Keppra) 500 mg Q12HR ORAL 03/16/17 21:00 04/13/17 20:59 03/19/17 08:42 Metronidazole 100 ml @ 100 mls/hr Q8HR IVPB 03/17/17 22:00 03/24/17 21:59 03/19/17 14:25 Miscellaneous Medication (fentaNYL Destruction) 1 ea Q72H MISC 03/19/17 10:30 04/18/17 10:29 03/19/17 10:30 Naloxone HCl (Narcan) 0.1 mg PRN IV Sedation scale 3 or 4 03/16/17 10:30 04/15/17 10:29 Ondansetron HCl (Zofran) 4 mg Q6H PRN IVP Nausea & Vomiting 03/16/17 13:30 04/15/17 07:29 Pantoprazole (Protonix) 40 mg EVERY 12 HOURS ORAL 03/16/17 21:00 04/13/17 20:59 8/28/17 08:42 Prednisone (predniSONE) 20 mg DAILY ORAL 03/19/17 09:00 04/18/17 08:59 03/19/17 08:41 Vancomycin HCl (Vanco rx to dose) 1 ea DAILYPRN PRN MISC Per rx protocol 03/16/17 10:45 04/13/17 10:44 Vancomycin HCl 1 gm/Dextrose 275 ml @ 183.708 mls/hr Q24H IVPB 03/17/17 21:00 03/22/17 20:59 03/18/17 20:41 DIMITRI RIVERA Mar 19, 2017 16:21
[2017-03-19] MEDS ORDERED: Naloxone 0.4mg/ml Inj IV PRN (19:00)
[2017-03-19] MEDS ORDERED: DuoNeb 0.5-3(2.5)mg/3ml neb HHN SCH (19:30)
[2017-03-19] MEDS: Heparin 5000 units/ml inj SUBQ SCH (20:40)
[2017-03-19] MEDS ORDERED: Vancomycin 1 GM in D5W 275 ML IVPB SCH (21:00)
[2017-03-19] MEDS ORDERED: Dyna-Hex 2% Top Sol 8oz TOPIC SCH (21:00)
[2017-03-20] VITALS: BP 141/91
[2017-03-20 04:00] VITALS: BP 148/100
--- NOTE | 2017-03-20 05:30 | Progress Note ---
DATE: 03/19/2017 INTERNAL MEDICINE PROGRESS NOTE SUBJECTIVE: No chest pain. No shortness of breath. Monitored rhythm, sinus. OBJECTIVE: VITAL SIGNS: Blood pressure 150/76, pulse 89, and respirations 18. NECK: Supple. LUNGS: Clear. CARDIAC: Regular. Normal S1 and S2. ABDOMEN: Soft. EXTREMITIES: Trace edema. IMAGING STUDIES: Chest x-ray with no acute process. LABORATORY DATA: Reviewed. White count 10 and hemoglobin 12. Potassium 4.7. Lactic acid 4. Magnesium 1.5. IMPRESSION: 1. Persistent lactic acidosis, recovered. 2. Sepsis. 3. Hypomagnesemia, resolved. 4. Pneumonia, recovered. 5. Acute congestive heart failure, resolved. 6. Paroxysmal atrial fibrillation, suppressed. PLAN: 1. Steroid taper. 2. Antibiotics per Infectious Disease professional housing consultant. 3. No anticoagulation due to fall and bleeding risk. 4. Maintain amiodarone for suppression of atrial arrhythmias. 5. IV magnesium. 6. Discharge planning. Geo Oliver M.D. DR: GOGO JOB#: [id number] CC:
[2017-03-20] MEDS: metroNIDAZOLE 500mg 100 ML IVPB SCH ×2 (06:30→13:45)
[2017-03-20] MEDS: Norco 10mg/325mg tab ORAL PRN (07:38)
[2017-03-20 08:09] VITALS: BP 133/83
[2017-03-20] MEDS: Amiodarone 200mg tab ORAL SCH (08:50)
[2017-03-20] MEDS: Heparin 5000 units/ml inj SUBQ SCH (08:54)
[2017-03-20 08:59] LABS: BASOPHILS % (AUTO) 0.8 % (0.0-2.0); EOSINOPHILS % (AUTO) 0.2 % (0.0-3.0); LYMPHOCYTES % (AUTO) 21.4 % (20.0-45.0); MEAN CORPUSCULAR HEMOGLOBIN 30.1 PG (27.0-31.0); MEAN CORPUSCULAR HGB CONC 31.8 G/DL (32.0-36.0); MEAN CORPUSCULAR VOLUME 95 FL (80-99); MEAN PLATELET VOLUME 8.7 FL (6.5-10.1); MONOCYTES % (AUTO) 3.5 % (1.0-10.0); PLATELET COUNT 135 K/UL (150-450); RED BLOOD COUNT 4.58 M/UL (4.20-5.40); WHITE BLOOD COUNT 14.3 K/UL (4.8-10.8)
[2017-03-20] MEDS ORDERED: PredniSONE 20mg tab ORAL SCH (09:00)
[2017-03-20] MEDS ORDERED: Atenolol 25mg tab ORAL SCH (09:00)
[2017-03-20 09:20] LABS: ANION GAP 11 (5-15); CALCIUM 8.4 mg/dL (8.6-10.2); CARBON DIOXIDE 31 mEQ/L (20-30); CHLORIDE 96 mEQ/L (98-107); CREATININE 0.8 mg/dL (0.5-0.9); GLOMERULAR FILTRATION RATE > 60 mL/min (>60); HEMOLYSIS 6; SODIUM 138 mEQ/L (135-145)
[2017-03-20 09:21] LABS: REFLEX LACTIC ACID YES OR NO YES
[2017-03-20] MEDS: Cefepime HCl 1 GM in D5W 55 ML IVPB SCH (11:01)
[2017-03-20 11:30] VITALS: BP 106/73
--- NOTE | 2017-03-20 12:57 | Pulmonology Progress Note ---
Assessment/Plan Assessment/Plan IMPRESSION: 1. Pneumonia. 2. Pulmonary fibrosis. 3. Lupus. 4. Hypertension. 5. A.fib + RVR DISCUSSION: Continue antibiotics. Continue Zofran and [place]. Continue oxygen. Pulmonary hygiene. Rate control. Agree with taper of steroids On tele DC planning Subjective Interval Events: Feeling well Constitutional: Reports: no symptoms HEENT: Repors: no symptoms Respiratory: Reports: shortness of breath Cardiovascular: Reports: no symptoms Gastrointestinal/Abdominal: Reports: no symptoms Allergies: Coded Allergies: NO KNOWN ALLERGIES (Unverified Allergy, Unknown, 06/30/16) Objective Last 24 Hour Vital Signs Date Time Temp Pulse Resp B/P (MAP) Pulse Ox O2 Delivery O2 Flow Rate FiO2 03/20/17 11:30 96.7 74 18 106/73 97 Room Air 03/20/17 08:53 74 133/83 03/20/17 08:09 96.6 74 18 133/83 96 Room Air 03/20/17 08:00 79 03/20/17 07:46 95 Room Air 03/20/17 07:46 Room Air 03/20/17 04:00 97.5 73 20 148/100 96 Room Air 03/20/17 04:00 68 03/20/17 00:00 66 03/20/17 00:00 97.5 75 20 141/91 99 Room Air 03/19/17 20:49 70 20 Room Air 03/19/17 20:00 75 03/19/17 20:00 97.5 65 22 143/83 100 Room Air 03/19/17 19:58 76 16 100 Room Air 03/19/17 19:49 96 Room Air 21 03/19/17 19:49 Room Air 21 03/19/17 19:47 65 18 96 Room Air 21 03/19/17 19:00 79 16 135/87 100 Room Air 03/19/17 18:00 77 16 140/87 98 Room Air 03/19/17 17:00 70 16 132/77 98 Room Air 03/19/17 16:00 98.7 71 15 130/80 98 Room Air 03/19/17 16:00 70 03/19/17 15:00 72 20 137/77 100 Nasal Cannula 2.0 03/19/17 14:00 72 20 120/67 98 Nasal Cannula 2.0 03/19/17 13:34 75 18 100 Room Air 21 03/19/17 13:22 71 18 98 Room Air 21 03/19/17 13:00 70 22 141/90 98 Nasal Cannula 2.0 Intake and Output 03/20/17 03/21/17 19:00 07:00 Intake Total 420 ml Balance 420 ml Intake Oral 420 ml HEENT: normocephalic Respiratory/Chest: chest wall non-tender, crackles/rales Cardiovascular: normal peripheral pulses, normal rate Abdomen: normal bowel sounds, soft, non tender Microbiology Date/Time Source Procedure Growth Status 03/17/17 19:45 Sputum Gram Stain - Final Complete 03/17/17 19:45 Sputum Sputum Culture - Final NORMAL UPPER RESPIRATORY MOUNA PRESENT Complete Laboratory Tests 03/20/17 08:25: White Blood Count 14.3H, Red Blood Count 4.58, Hemoglobin 13.8, Hematocrit 43.4 , Mean Corpuscular Volume 95, Mean Corpuscular Hemoglobin 30.1, Mean Corpuscular Hemoglobin Concent 31.8L, Red Cell Distribution Width 13.0, Platelet Count 135L, Mean Platelet Volume 8.7, Neutrophils (%) (Auto) 74.0, Lymphocytes (%) (Auto) 21.4, Monocytes (%) (Auto) 3.5, Eosinophils (%) (Auto) 0.2, Basophils (%) (Auto) 0.8, Sodium Level 138, Potassium Level 4.0, Chloride Level 96L, Carbon Dioxide Level 31H, Anion Gap 11, Blood Urea Nitrogen 18, Creatinine 0.8, Estimat Glomerular Filtration Rate > 60, Glucose Level 137H, Lactic Acid Level 4.10H, Calcium Level 8.4L 03/20/17 10:50: Lactic Acid Level 2.40H Current Medications Medications (Trade) Dose Ordered Sig/Harvey Route PRN Reason Start Time Stop Time Status Last Admin Dose Admin Acetaminophen/ Hydrocodone Bitart ([place] 10/325) 1 ea Q4H PRN ORAL For Pain 03/19/17 21:00 03/24/17 16:59 03/20/17 07:38 Amiodarone HCl (Cordarone) 200 mg EVERY 12 HOURS ORAL 03/19/17 21:00 04/16/17 16:59 03/20/17 08:50 Atenolol (Tenormin) 25 mg DAILY ORAL 03/20/17 09:00 04/15/17 08:59 03/20/17 08:53 Cefepime HCl 1 gm/ Dextrose 55 ml @ 110 mls/hr Q12HR@1100,2300 IVPB 03/19/17 23:00 03/24/17 22:59 03/20/17 11:01 Fentanyl (Duragesic) 1 patch Q72H TDERMAL 03/22/17 10:30 03/23/17 10:29 Gabapentin (Neurontin) 300 mg THREE TIMES A DAY ORAL 03/20/17 09:00 04/14/17 08:59 03/20/17 08:51 Heparin Sodium (Porcine) (Heparin 5000 units/ml) 5,000 units EVERY 12 HOURS SUBQ 03/19/17 21:00 04/18/17 08:59 03/20/17 08:54 Levetiracetam (Keppra) 500 mg Q12HR ORAL 03/19/17 21:00 04/13/17 20:59 03/20/17 08:51 Metronidazole 100 ml @ 100 mls/hr Q8HR IVPB 03/19/17 22:00 03/24/17 21:59 03/20/17 06:30 Miscellaneous Medication (fentaNYL Destruction) 1 ea Q72H MISC 03/22/17 10:30 04/18/17 10:29 Naloxone HCl (Narcan) 0.1 mg PRN IV Sedation scale 3 or 4 03/19/17 19:00 04/15/17 10:29 Ondansetron HCl (Zofran) 4 mg Q6H PRN IVP Nausea & Vomiting 03/19/17 19:30 04/15/17 07:29 Prednisone (predniSONE) 20 mg DAILY ORAL 03/20/17 09:00 04/18/17 08:59 03/20/17 08:52 Vancomycin HCl (Vanco rx to dose) 1 ea DAILYPRN PRN MISC Per rx protocol 03/19/17 19:30 04/18/17 19:29 Vancomycin HCl 1 gm/Dextrose 275 ml @ 183.708 mls/hr Q24H IVPB 03/19/17 21:00 03/22/17 20:59 03/19/17 20:38 Regan Hernandez MD Mar 20, 2017 12:56
[2017-03-20] MEDS ORDERED: AMIODARONE HCL400 M1 ORAL (13:41)
[2017-03-20] MEDS ORDERED: AUGMENTIN 500-1 EACH ORAL (13:43)
[2017-03-20] MEDS ORDERED: NS 275ml ONE (14:30)
[2017-03-20] MEDS ORDERED: Tubing IV Secondary IV ONE (14:30)
[2017-03-20 15:34] VITALS: BP 123/78
[2017-03-21] MEDS ORDERED: Amiodarone 200mg tab ORAL SCH (09:00)
[2017-03-21] MEDS ORDERED: PredniSONE 20mg tab ORAL SCH (09:00)
[2017-03-22] MEDS ORDERED: fentaNYL Destruction MISC SCH (10:30)
--- NOTE | 2017-03-22 15:11 | Discharge Summary ---
Discharge Summary Hospital Course Date of Admission Mar 14, 2017 at 09:44 Date of Discharge Mar 20, 2017 at 17:34 Admitting Diagnosis HYPOTENSIVE HPI Mercedes Perez is a 67 year old female who was admitted on Mar 14, 2017 at 09: 44 for Shortness Of Breath Hospital Course [id number] Discharge Discharge Disposition Patient was discharged to Home with Home Health(06) Discharge Diagnoses: Namrata Dorsey NP Mar 22, 2017 15:11
--- NOTE | 2017-03-23 02:15 | Discharge Summary 2 SIG ---
DATE OF ADMISSION: 03/14/2017 DATE OF DISCHARGE: 03/20/2017 CONSULTANTS: 1. Regan Hernandez M.D. 2. Мария Joseph M.D. BRIEF HOSPITAL COURSE: The patient is a 67-year-old female with systemic lupus. She had congestion and cough for several weeks and was not treated with antibiotics. She developed shortness of breath for the past day or two and had increasing sputum production. On evaluation at ED, chest x-ray showed left upper lung infiltrate and blood work showed leukocytosis, WBC was 13.5. Lactic acid was elevated to 3.0. While at ED, the patient became hypotensive, unresponsive to IV fluids. A right femoral central line was immediately placed and IV pressors were started. The patient was admitted to ICU. She was given IV fluid volume resuscitation and stress-dose steroids were given. She was pancultured and was started on IV cefepime and vancomycin. She was eventually tapered off. She had atrial fibrillation with RVR and was given Cardizem and was started on anticoagulation. She was on anticoagulation with high-dose Lovenox. She was eventually tapered off Cardizem and was continued on amiodarone. She was sinus rhythm on the monitor. High-dose Lovenox was discontinued and was given subcutaneous heparin because of high risk bleeding complications and falls at home. Steroids were tapered. Cultures did not isolate any growth. The patient was eventually discharged home with home health. FINAL DIAGNOSES: 1. Sepsis. 2. Persistent lactic acidosis. 3. Hypomagnesemia, resolved. 4. Pneumonia, recovered. 5. Acute congestive heart failure, resolved. 6. Paroxysmal atrial fibrillation. 7. Lupus, immunocompromised state. 8. Hypokalemia. 9. Acute diastolic congestive heart failure. 10. Atrial fibrillation with rapid ventricular response. DISPOSITION: The patient was discharged home with home health. DISCHARGE MEDICATIONS: Refer to medication list. FOLLOWUP: The patient to follow up as an outpatient in a week. ACTIVITY: As tolerated. Geo Oliver M.D. I have been assigned to dictate discharge summary on this account and I was not involved in the patient's management. Namrata Dorsey N.P. DR: Sam JOB#: [id number] CC:
== END 2017-03-20 17:34 | disposition home health service (06) | DRG 871 ==
LOC: EDBD 08:22 → EMR 08:43 → 2E 09:44 → EDBEDREQ 10:43 → ICU 18:52 → 2E 03-15 18:42 → ICU 03-16 09:39 → 2E 03-19 18:50
PROC: 06HM33Z Insertion of Infusion Device into Right Femoral Vein, Percutaneous Approach (ICD-10-PCS; principal; 2017-03-14)
DX: A41.9 Sepsis, unspecified organism (principal); J18.9 Pneumonia, unspecified organism; R65.21 Severe sepsis with septic shock; I50.33 Acute on chronic diastolic (congestive) heart failure; J84.10 Pulmonary fibrosis, unspecified; D89.9 Disorder involving the immune mechanism, unspecified; E83.42 Hypomagnesemia; I11.0 Hypertensive heart disease with heart failure; M32.9 Systemic lupus erythematosus, unspecified; G40.909 Epilepsy, unspecified, not intractable, without status epilepticus; I48.0 Paroxysmal atrial fibrillation; E87.6 Hypokalemia; R09.02 Hypoxemia; M10.9 Gout, unspecified; Z87.891 Personal history of nicotine dependence; T38.0X5A Adverse effect of glucocorticoids and synthetic analogues, initial encounter
CPT/HCPCS: 36415; 71010; 80048; 80053; 80202; 80299; 81001; 81003; 82550; 82553; 82962; 83605; 83735; 83880; 84484; 85007; 85025; 87040; 87070; 87081; 87205; 93005; 94640; 94664; 94760; J0282; J7620

== ENCOUNTER 2017-07-02 15:04 | Observation (INO) | payer OTHER, MEDICAID ==
[~2017-07-02] VITALS: Ht 167.6 cm; Wt 55.3 kg
[~2017-07-02 15:04] MED LIST changes: +AMIODARONE HCL400 M1 ORAL; +AUGMENTIN 500-1 EACH ORAL
[2017-07-02 15:29] VITALS: BP 95/54
[2017-07-02 16:08] LABS: MEAN CORPUSCULAR HEMOGLOBIN 28.4 PG (27.0-31.0); MEAN CORPUSCULAR HGB CONC 30.5 G/DL (32.0-36.0); MEAN CORPUSCULAR VOLUME 93 FL (80-99); PLATELET COUNT 154 K/UL (150-450); RED BLOOD COUNT 4.83 M/UL (4.20-5.40); RED CELL DISTRIBUTION WIDTH 13.7 % (11.6-14.8); WHITE BLOOD COUNT 20.7 K/UL (4.8-10.8)
[2017-07-02 16:17] LABS: ANION GAP 9 mmol/L (5-15); CALCIUM 9.5 MG/DL (8.5-10.1); CARBON DIOXIDE 28 MMOL/L (21-32); CHLORIDE 102 MMOL/L (98-107); CREATININE 1.2 MG/DL (0.55-1.30); GLOMERULAR FILTRATION RATE 53.9 mL/min (>60); POTASSIUM 4.5 MMOL/L (3.5-5.1); SODIUM 139 MMOL/L (136-145)
[2017-07-02 16:21] LABS: ALANINE AMINOTRANSFERASE 16 U/L (12-78); ALBUMIN/GLOBULIN RATIO 0.7 (1.0-2.7); ASPARTATE AMINO TRANSFERASE 13 U/L (15-37); TOTAL PROTEIN 6.7 G/DL (6.4-8.2)
[2017-07-02] MEDS ORDERED: cefTRIAXone 1 GM in NS 55 ML IVPB ONE (16:30)
[2017-07-02] MEDS ORDERED: Azithromycin 500 MG in NS 275 ML IV ONE (16:30)
--- NOTE | 2017-07-02 16:30 | Emergency Room Report ---
History of Present Illness General Chief Complaint: Upper Respiratory Illness Source: Patient, Family Member, Medical Record Present Illness HPI 67-year-old female brought in with significant other with one week of cough, now with green sputum production. Production usually is white, history of pulmonary fibrosis, and lupus. On chronic steroids, prednisone 10 mg daily. Denies any fever chills or chest pain. Was hospitalized a couple months ago for pneumonia. Patient was admitted in February for left upper lobe pneumonia However blood cultures and sputum cultures were negative Allergies: Coded Allergies: NO KNOWN ALLERGIES (Unverified Allergy, Unknown, 06/30/16) Patient History Past Medical History: other - see history of present illness Past Surgical History: none Pertinent Family History: none Social History: Denies: smoking, alcohol use, drug use Now: No Immunizations: UTD Reviewed Nursing Documentation: PMH: Agreed, PSxH: Agreed Nursing Documentation-PMH Hx Cardiac Problems: Yes - CHF; Lupus Hx Hypertension: Yes Hx COPD: Yes - Respiratory failure; Sepsis Hx Cancer: No Hx Gastrointestinal Problems: Yes Hx Neurological Problems: Yes Hx Seizures: Yes - MYOCLONIC JERK Hx Peripheral Neuropathy: Yes Hx Numbness: Yes Hx Weakness: Yes - lower extremities Physical Exam Vital Signs Date Time Temp Pulse Resp B/P (MAP) Pulse Ox O2 Delivery O2 Flow Rate FiO2 07/02/17 15:19 98.2 86 18 86/64 99 Room Air Sp02 EP Interpretation: reviewed, normal General Appearance: normal inspection, well appearing, no apparent distress, alert, GCS 15, non-toxic, other - well-appearing, conversant Head: normocephalic, atraumatic Eyes: bilateral eye PERRL, bilateral eye EOMI ENT: normal ENT inspection, hearing grossly normal, normal voice Neck: normal inspection, full range of motion, supple, no bony tend Respiratory: normal inspection, lungs clear, normal breath sounds, no respiratory distress, no retraction, no wheezing Cardiovascular #1: regular rate, rhythm, no edema Gastrointestinal: normal inspection, normal bowel sounds, non tender, soft, no guarding, no hernia Genitourinary: no CVA tenderness Musculoskeletal: normal inspection, back normal, normal range of motion, Lyly' s Sign negative Neurologic: normal inspection, alert, oriented x3, responsive, pulp drier firer III-XII nml as tested, speech normal Psychiatric: normal inspection, judgement/insight normal, mood/affect normal Skin: normal inspection, normal color, no rash Lymphatic: normal inspection Medical Decision Making Diagnostic Impression: Primary Impression: Cough Additional Impressions: Leukocytosis Qualified Codes: D72.829 - Elevated white blood cell count, unspecified Sepsis Qualified Codes: A41.9 - Sepsis, unspecified organism ER Course 67-year-old female with possible sepsis due to pneumonia Chest x-ray actually shows resolution of previously seen left upper lobe pneumonia in February However patient has acute change in sputum color, she is hypotensive, and leukocytosis is 20,000, which is much higher than baseline leukocytosis which was probably likely to daily prednisone Blood cultures pending Empiric antibiotics given Blood pressure actually improved when fentanyl patch was removed IV fluid also given Sepsis Re-examination Time: 435pm VS: HR 73, BP 95/54, RR15 CVS: RRR Respiratory: Lungs clear bilaterally Peripheral pulses: 2+ radial Capillary refill: <2 seconds Skin exam: warm, dry, no rash, not mottled Endorsed to Dr Putnam per insurance request [phone] Tele admit Rhythm Strip Diag. Results EP Interpretation: yes Rate: 70 Rhythm: NSR, no PVC's, no ectopy Chest X-Ray Diagnostic Results Chest X-Ray Diagnostic Results : Chest X-Ray Ordered: Yes # of Views/Limited/Complete: 1 View Indication: Other - cough EP Interpretation: Yes Interpretation: no consolidation, no effusion, no pneumothorax, no acute cardiopulmonary disease Impression: No acute disease Electronically Signed by: Dr Michelle Land MD Last Vital Signs Date Time Temp Pulse Resp B/P (MAP) Pulse Ox O2 Delivery O2 Flow Rate FiO2 07/02/17 15:19 98.2 86 18 86/64 99 Room Air Status: improved Disposition: ADMITTED INPATIENT Condition: Serious MICHELLE LAND M.D. Jul 02, 2017 16:30
[2017-07-02 16:35] LABS: BAND NEUTROPHILS % (MANUAL) 8 % (0-8); LYMPHOCYTES % (MANUAL) 8 % (20-45); NEUTROPHILS % (MANUAL) 77 % (45-75); TOTAL CELLS COUNTED 100
[2017-07-02 16:36] LABS: BASOPHILS % (MANUAL) 0 % (0-2); EOSINOPHILS % (MANUAL) 0 % (0-3); PLATELET ESTIMATE ADEQUATE; PLATELET MORPHOLOGY NORMAL
[2017-07-02] MEDS ORDERED: Azithromycin 500mg Inj IV ONE (17:00)
--- NOTE | 2017-07-02 17:20 | Diagnostic Imaging Report ---
Indication: SOB Technique: One view of the chest Comparison: 03/19/2017 Findings: Interim development of retrocardiac consolidation and obscuration of left hemidiaphragm which may indicate some pleural fluid. There is some atelectasis at the right lung base again demonstrated. There is some left perihilar atelectasis as well. The heart is borderline enlarged. Impression: Left basilar consolidation and possibly pleural fluid Right basilar atelectasis Borderline cardiomegaly
[2017-07-02 17:52] VITALS: BP 88/71
[2017-07-02] MEDS ORDERED: GABAPENTIN400 MG ORAL (18:09)
[2017-07-02] MEDS ORDERED: ATENOLOL25 MG ORAL (18:11)
[2017-07-02] MEDS ORDERED: KEPPRA500 MG ORAL (18:13)
[2017-07-02] MEDS ORDERED: ALBUTEROL2.5 MG/3 M INH (18:16)
[2017-07-02] MEDS ORDERED: ZANTAC150 MG ORAL (18:20)
[2017-07-02] MEDS ORDERED: BRIMONIDINE TART5 ML BOTH EYES (18:31)
[2017-07-02] MEDS ORDERED: TRIAMTERENE-HC1 EAC5 ORAL (18:31)
[2017-07-02] MEDS ORDERED: HYDROCODON-ACE1 EA16 ORAL (18:31)
[2017-07-02] MEDS ORDERED: ALLOPURINOL100 M1 ORAL (18:41)
[2017-07-02] MEDS ORDERED: VITAMIN D1000 UNI1 ORAL (18:47)
[2017-07-02] MEDS ORDERED: VITAMIN B-121000 MCG PO (18:49)
[2017-07-02 19:21] VITALS: BP 91/51
[2017-07-02 20:12] VITALS: BP 90/54
--- NOTE | 2017-07-02 20:59 | History & Physical ---
History and Physical History & Physicial HISTORY OF PRESENT ILLNESS: This is a 67-year-old female with a longstanding history of lupus, pulmonary fibrosis, and chronically on steroids. She came to the hospital with shortness of breath and increase in WBC. She was seen and worked up and subsequently admitted to the hospital for pneumonia and increase in sputum production. PAST MEDICAL HISTORY: seizure disorder, lupus, gout, hypertension, and pulmonary fibrosis. prior pneumonia ALLERGIES: reviewed LIST OF MEDICATIONS: reviewed REVIEW OF SYSTEMS: as above. PHYSICAL EXAMINATION: GENERAL: Reveals elderly female. in NAD HEENT: Unremarkable. CHEST: Shows fine bibasilar crackles. moderate breath sounds CARDIAC: RRR ABDOMEN: Soft. There is no edema. NEUROLOGIC: Nonfocal. IMAGING STUDIES: reviewed LABORATORY TESTING: reviewed IMPRESSION: 1. Pneumonia. 2. Pulmonary fibrosis. 3. Lupus. 4. Hypertension. 5. Gout. PLAN IV antibiotics check sputum culture follow up CBC monitor clinically resume home meds dc once improved with outpatient follow up TABATHA GARCIA Jul 02, 2017 20:59
[2017-07-02 21:14] VITALS: BP 99/62
[2017-07-02] MEDS ORDERED: Albuterol/Ipratropium 3ml neb HHN PRN ×2 (23:15)
[2017-07-02] MEDS ORDERED: Zolpidem 5mg tab ORAL PRN (23:15)
[2017-07-03] VITALS: BP 105/68
[2017-07-03] MEDS ORDERED: Zosyn 3.375gm inj ONE ×2 (00:38→05:37)
[2017-07-03] MEDS ORDERED: Vancomycin 1gm inj IVPB ONE (00:38)
[2017-07-03] MEDS: Vancomycin 1gm in D5W 275ml IVPB SCH ×2 (00:59→01:00)
[2017-07-03] MEDS: Piperacillin/Tazobactam 3.375 GM in D5W 110 ML IVPB SCH ×2 (01:00→06:04)
[2017-07-03 04:00] VITALS: BP 100/65
[2017-07-03 06:39] LABS: BASOPHILS % (AUTO) 0.5 % (0.0-2.0); EOSINOPHILS % (AUTO) 0.5 % (0.0-3.0); LYMPHOCYTES % (AUTO) 16.4 % (20.0-45.0); MEAN CORPUSCULAR HEMOGLOBIN 30.8 PG (27.0-31.0); MEAN CORPUSCULAR HGB CONC 32.6 G/DL (32.0-36.0); MEAN CORPUSCULAR VOLUME 94 FL (80-99); MEAN PLATELET VOLUME 9.9 FL (6.5-10.1); MONOCYTES % (AUTO) 4.9 % (1.0-10.0); NEUTROPHILS % (AUTO) 77.6 % (45.0-75.0); PLATELET COUNT 132 K/UL (150-450); RED BLOOD COUNT 3.86 M/UL (4.20-5.40); RED CELL DISTRIBUTION WIDTH 14.3 % (11.6-14.8); WHITE BLOOD COUNT 13.9 K/UL (4.8-10.8)
[2017-07-03 07:01] LABS: ANION GAP 6 mmol/L (5-15); CALCIUM 8.2 MG/DL (8.5-10.1); CARBON DIOXIDE 29 MMOL/L (21-32); CHLORIDE 105 MMOL/L (98-107); GLOMERULAR FILTRATION RATE > 60 mL/min (>60); POTASSIUM 4.3 MMOL/L (3.5-5.1); SODIUM 140 MMOL/L (136-145)
[2017-07-03 08:00] VITALS: BP 100/77
[2017-07-03] MEDS ORDERED: Norco 7.5mg/325mg tab ORAL PRN (08:15)
[2017-07-03] MEDS ORDERED: Allopurinol 100mg Tab ORAL PRN (08:15)
[2017-07-03] MEDS ORDERED: Heparin 5000 units/ml inj SUBQ SCH (09:00)
[2017-07-03] MEDS: Atenolol 25mg tab ORAL SCH (09:00)
[2017-07-03] MEDS: Aspirin EC 81mg tab ORAL SCH (09:00)
[2017-07-03] MEDS: Azithromycin 250mg tab ORAL SCH (09:02)
--- NOTE | 2017-07-03 09:09 | General Progress Note ---
Assessment/Plan Assessment/Plan IMPRESSION: 1. Pneumonia. 2. Pulmonary fibrosis. 3. Lupus. 4. Hypertension. 5. Gout. 6. Afib, paroxysmal PLAN IV antibiotics check sputum culture follow up CBC resume meds resume amiodarone not safe for anticoagulation monitor clinically resume home meds dc once improved with outpatient follow up Subjective Allergies: Coded Allergies: NO KNOWN ALLERGIES (Unverified Allergy, Unknown, 06/30/16) Subjective has PAF better and less congested Objective Last 24 Hour Vital Signs Date Time Temp Pulse Resp B/P (MAP) Pulse Ox O2 Delivery O2 Flow Rate FiO2 07/03/17 09:00 140 120/71 07/03/17 08:00 97.4 100 19 100/77 Room Air 3.0 07/03/17 04:05 Nasal Cannula 2.0 07/03/17 04:00 97.5 73 20 100/65 100 Nasal Cannula 07/03/17 04:00 62 07/03/17 00:00 97.9 64 20 105/68 95 Room Air 07/03/17 00:00 69 07/02/17 21:14 98.4 77 20 99/62 97 Room Air 07/02/17 20:42 98.5 73 16 90/54 99 Room Air 07/02/17 20:12 98.5 73 16 90/54 99 Room Air 07/02/17 19:21 98.5 77 16 91/51 99 Room Air 07/02/17 17:52 98.2 79 16 88/71 99 Room Air 07/02/17 15:29 98.2 67 14 95/54 99 Room Air 07/02/17 15:29 86 18 Room Air 07/02/17 15:19 98.2 86 18 86/64 99 Room Air Laboratory Tests 07/02/17 15:48: White Blood Count 20.7H, Red Blood Count 4.83, Hemoglobin 13.7, Hematocrit 44.9 , Mean Corpuscular Volume 93, Mean Corpuscular Hemoglobin 28.4, Mean Corpuscular Hemoglobin Concent 30.5L, Red Cell Distribution Width 13.7, Platelet Count 154, Mean Platelet Volume 9.0, Neutrophils (%) (Auto) , Lymphocytes (%) (Auto) , Monocytes (%) (Auto) , Eosinophils (%) (Auto) , Basophils (%) (Auto) , Differential Total Cells Counted 100, Neutrophils % ( Manual) 77H, Lymphocytes % (Manual) 8L, Monocytes % (Manual) 7, Eosinophils % ( Manual) 0, Basophils % (Manual) 0, Band Neutrophils 8, Platelet Estimate Adequate, Platelet Morphology Normal, Red Blood Cell Morphology Normal, Sodium Level 139, Potassium Level 4.5, Chloride Level 102, Carbon Dioxide Level 28, Anion Gap 9, Blood Urea Nitrogen 34H, Creatinine 1.2, Estimat Glomerular Filtration Rate 53.9, Glucose Level 116H, Calcium Level 9.5, Total Bilirubin 0.4 , Aspartate Amino Transf (AST/SGOT) 13L, Alanine Aminotransferase (ALT/SGPT) 16 , Alkaline Phosphatase 61, Total Protein 6.7, Albumin 2.8L, Globulin 3.9, Albumin/Globulin Ratio 0.7L 07/03/17 06:10: White Blood Count 13.9H, Red Blood Count 3.86L, Hemoglobin 11.9L, Hematocrit 36.5L, Mean Corpuscular Volume 94, Mean Corpuscular Hemoglobin 30.8, Mean Corpuscular Hemoglobin Concent 32.6, Red Cell Distribution Width 14.3, Platelet Count 132L, Mean Platelet Volume 9.9, Neutrophils (%) (Auto) 77.6H, Lymphocytes (%) (Auto) 16.4L, Monocytes (%) (Auto) 4.9, Eosinophils (%) (Auto) 0.5, Basophils (%) (Auto) 0.5, Sodium Level 140, Potassium Level 4.3, Chloride Level 105, Carbon Dioxide Level 29, Anion Gap 6, Blood Urea Nitrogen 24H, Creatinine 1.0, Estimat Glomerular Filtration Rate > 60, Glucose Level 91, Calcium Level 8.2L Height (Feet): 5 Height (Inches): 6.00 Weight (Pounds): 122 Objective WDWN NAD crackles bilaterally S1S2 iRR tachy without MRG NABS nontender no HSM no CCE nonfocal TABATHA GARCIA Jul 03, 2017 09:09
[2017-07-03] MEDS: Brimonidine 0.2% Opth Sol BOTH EYES SCH (10:45)
[2017-07-03] MEDS ORDERED: Amiodarone 200mg tab ORAL ONE (10:45)
[2017-07-03 12:00] VITALS: BP 102/62
[2017-07-03] MEDS: Piperacillin/Tazobactam 3.375 GM in D5W 55 ML IVPB SCH ×2 (14:09→21:13)
--- NOTE | 2017-07-03 15:45 | Diagnostic Imaging Report ---
Indication: Shortness of breath Technique: One view of the chest Comparison: 07/02/2017 Findings: There is persistent bilateral basilar atelectasis. There is decreased retrocardiac consolidation. The heart size is borderline enlarged. The aorta is tortuous. Impression: Improved retrocardiac consolidation, over one day Other stable findings as described
[2017-07-03 16:00] VITALS: BP 100/60
[2017-07-03 20:00] VITALS: BP 109/63
[2017-07-03] MEDS: Heparin 5000 units/ml inj SUBQ SCH (20:59)
[2017-07-03] MEDS ORDERED: Amiodarone 200mg tab ORAL SCH (21:00)
[2017-07-03] MEDS: Solu-MEDROL 40mg Inj IVP SCH (21:12)
[2017-07-04] VITALS: BP 132/74
[2017-07-04] MEDS: Vancomycin 1gm in D5W 275ml IVPB SCH (00:28)
[2017-07-04 04:00] VITALS: BP 111/63
[2017-07-04] MEDS: Piperacillin/Tazobactam 3.375 GM in D5W 55 ML IVPB SCH (06:40)
[2017-07-04 08:00] VITALS: BP 129/69
[2017-07-04] MEDS: Brimonidine 0.2% Opth Sol BOTH EYES SCH (08:41)
[2017-07-04] MEDS: Solu-MEDROL 40mg Inj IVP SCH (08:41)
[2017-07-04] MEDS: Azithromycin 250mg tab ORAL SCH (08:42)
[2017-07-04] MEDS: Atenolol 25mg tab ORAL SCH (08:43)
[2017-07-04] MEDS: Aspirin EC 81mg tab ORAL SCH (08:43)
[2017-07-04] MEDS: Heparin 5000 units/ml inj SUBQ SCH (08:43)
[2017-07-04] MEDS ORDERED: fentaNYL Destruction MISC SCH (10:00)
--- NOTE | 2017-07-04 10:42 | General Progress Note ---
Assessment/Plan Assessment/Plan IMPRESSION: 1. Pneumonia. 2. Pulmonary fibrosis. 3. Lupus. 4. Hypertension. 5. Gout. 6. Afib, paroxysmal PLAN PO antibiotics dc home PO steroid taper not safe for anticoagulation monitor clinically resume home meds follow up with Dr. Hernandez chest imaging improved Subjective Allergies: Coded Allergies: NO KNOWN ALLERGIES (Unverified Allergy, Unknown, 06/30/16) Subjective has PAF better and less congested off oxygen refusing amio Objective Last 24 Hour Vital Signs Date Time Temp Pulse Resp B/P (MAP) Pulse Ox O2 Delivery O2 Flow Rate FiO2 07/04/17 09:00 83 22 Room Air 21 07/04/17 09:00 97 Room Air 21 07/04/17 09:00 Room Air 21 07/04/17 08:43 66 124/69 07/04/17 08:00 97.3 82 19 129/69 Nasal Cannula 3.0 07/04/17 04:00 Nasal Cannula 2.0 07/04/17 04:00 69 07/04/17 04:00 97.7 86 20 111/63 98 Room Air 07/04/17 00:00 80 07/04/17 00:00 97.3 67 20 132/74 96 Room Air 67 07/04/17 00:00 Nasal Cannula 2.0 07/03/17 20:00 97.9 64 20 109/63 100 Nasal Cannula 07/03/17 20:00 Nasal Cannula 2.0 07/03/17 20:00 79 07/03/17 19:40 100 Nasal Cannula 2.0 28 07/03/17 19:40 Nasal Cannula 2.0 28 07/03/17 19:39 104 20 Nasal Cannula 2.0 28 07/03/17 16:00 97.5 64 19 100/60 2.0 07/03/17 16:00 75 07/03/17 12:00 77 07/03/17 12:00 97.3 62 18 102/62 Nasal Cannula 2.0 Height (Feet): 5 Height (Inches): 6.00 Weight (Pounds): 122 Objective WDWN NAD crackles bilaterally- now improved S1S2 iRRR without MRG NABS nontender no HSM no CCE nonfocal TABATHA GARCIA Jul 04, 2017 10:42
[2017-07-04 12:00] VITALS: BP 130/73
--- NOTE | 2017-07-04 12:43 | Diagnostic Imaging Report ---
Indication: Shortness of breath Technique: One view of the chest Comparison: 07/03/2017 Findings: There is slightly improved infiltrate and atelectasis of the left mid and lower lung. There is persistent minimal atelectasis at the right lung base. Lungs and pleural spaces are otherwise clear. The heart size is upper limits of normal Impression: Slightly improved left basilar parenchymal disease, over one day
[2017-07-04] MEDS ORDERED: PREDNISONE10 M2 PO ×2 (12:53→12:55)
[2017-07-04] MEDS ORDERED: Tubing IV Secondary IV ONE (13:25)
--- NOTE | 2017-07-05 16:50 | Discharge Summary ---
Discharge Summary Hospital Course Date of Admission Jul 02, 2017 at 17:11 Date of Discharge Jul 04, 2017 at 13:26 Admitting Diagnosis pneumonia HPI Mercedes Perez is a 67 year old female who was admitted on Jul 02, 2017 at 17: 11 for Pneumonia Hospital Course [id number] Discharge Discharge Disposition Patient was discharged to Home (01) Discharge Diagnoses: Namrata Dorsey NP Jul 05, 2017 16:50
--- NOTE | 2017-07-06 00:45 | Discharge Summary 2 SIG ---
DATE OF ADMISSION: 07/02/2017 DATE OF DISCHARGE: 07/04/2017 BRIEF HOSPITAL COURSE: The patient is a 67-year-old female with longstanding history of lupus, pulmonary fibrosis and chronically on steroids, presented to ED complaining of shortness of breath and increased WBC count. On evaluation at ED, blood work showed leukocytosis, WBC was 20. Chest x-ray showed left basilar consolidation with possible pleural fluid. She was admitted under observation to telemetry for evaluation of cough and pneumonia. She was initially started on Zosyn and IV Solu-Medrol. She had episodes of paroxysmal atrial fibrillation and was resumed on amiodarone. The patient is not safe to be started on anticoagulation. Steroids were tapered. Antibiotics was changed to p.o. Subsequent chest imaging showed improved consolidation. She was eventually discharged home to follow up with Dr. Hernandez. FINAL DIAGNOSES: 1. Pneumonia. 2. Pulmonary fibrosis. 3. Lupus. 4. Hypertension. 5. Gout. 6. Paroxysmal trial fibrillation. DISPOSITION: The patient was discharged home. DISCHARGE MEDICATIONS: Refer to medication list. FOLLOWUP: Follow up with Dr. Hernandez as outpatient. Lamin Putnam M.D. I have been assigned to dictate discharge summary on this account and I was not involved in the patient's management. Namrata Dorsey N.P. DR: ARSALAN JOB#: [id number] CC: MAURICE
== END 2017-07-04 13:26 | disposition home or self-care (01) ==
LOC: EMR 16:13 → INTOOBSV 17:11 → 2E 17:11 → ENRESERV 20:02 → EDBEDREQ 20:04
DX: J18.9 Pneumonia, unspecified organism (principal); J84.10 Pulmonary fibrosis, unspecified; M32.9 Systemic lupus erythematosus, unspecified; M10.9 Gout, unspecified; D72.829 Elevated white blood cell count, unspecified; J44.9 Chronic obstructive pulmonary disease, unspecified; G62.9 Polyneuropathy, unspecified; I11.0 Hypertensive heart disease with heart failure; I50.9 Heart failure, unspecified; I95.9 Hypotension, unspecified; G40.909 Epilepsy, unspecified, not intractable, without status epilepticus; I48.0 Paroxysmal atrial fibrillation; Z79.52 Long term (current) use of systemic steroids
CPT/HCPCS: 36415 ×2; 71010 ×3; 80048; 80053; 80299 ×2; 85007; 85025 ×2; 87040; 93005 ×2; 94664 ×2; 94760 ×2; 99285; G0378 ×2; J0456; J0696; J2543; J2920 ×2; J3370 ×2; J7050